=== PATIENT | male | born 1940 | race Caucasian/White ===

== ENCOUNTER → 2017-04-28 08:22 | Outpatient (CLI) | payer MEDICARE, OTHER ==
[2016-08-29 15:11] VITALS: BMI 27.6
[~2017-04-28 08:22] MED LIST: ACCUPRIL20 MG PO; ASPIRIN325 MG PO; DOXYCYCLINE HY100 M2 PO; HCTZ25 MG PO; HYDROCODON-ACE1 EAC7 PO; LANTUS SOL100 UNIT/1 SC; NEURONTIN 300300 MG PO; TESTOSTERON200 MG/ML IM; TOPROL XL50 MG PO; ZETIA10 MG PO; ZOCOR40 MG PO
== END | disposition home or self-care (01) ==
LOC: D.RT 08:22
DX: R06.00 Dyspnea, unspecified (principal)

== ENCOUNTER 2017-06-01 10:44 | Outpatient (CLI) | payer MEDICARE, OTHER ==
[~2017-06-01] VITALS: Ht 175.3 cm; Wt 86.4 kg
--- NOTE | ~2017-06-01 | HEMODYNAMI ---
PATIENT:CHELY BRADLEY JR MEDICAL RECORD: [id number] : 42 LOCATION:[facility] ADMISSION DATE: 06/01/17 Generatedon:06/01/201714:18 Patient name: CHELY BRADLEY Patient #: [id number] SSN: : 1940 Date of study: 06/01/2017 Page: Of Hemodynamic Procedure Report Patient Data Patient Demographics Procedure consent was obtained First Name: CHELY Gender: Male Last Name: KIRK Suffix: [facility] Initial: Lashawn : 1940 Patient #: [id number] Age: 76 year(s) Race: Unknown Additional ID: [id number] Contact details [address]: [address] [place] [address] State: [place] City: [place] Zip code: [address] Past Medical History Allergies: No known allergies Admission Admission Data Admission Date: 06/01/2017 Admission Time: 10:44 Admit Source: Other Lab Results Lab Result Date: 06/01/2017 Lab Result Time: 11:33 Biochemistry Name Units Result Min Max BUN mg/dl 31 --(----)-* 7 18 Creatinine mg/dl 1.9 --(----)-* 0.6 1.3 CBC Name Units Result Min Max Hematocrit % 50.7 --(--*-)-- 42 54 Hemoglobin g/dl 15.6 --(--*-)-- 13.5 17.5 Procedure Procedure Types Cath Procedure Diagnostic Procedure LHC LHC w/Coronaries w/Grafts PCI Procedure SVG-BMS/MAYITO Initial Miscellaneous Procedures Moderate Sedation up to 30 minutes Procedure Description Procedure Date Procedure Date: 06/01/2017 Procedure Start Time: 13:49 Procedure End Time: 14:15 Procedure Staff Name Function Gustavo Verduzco MD Performing Physician Devyn Plata RN Nurse Phillip Casillas RN Nurse Wilner Santana RT Monitor Karthik Church RT Scrub Procedure Data Cath Procedure Fluoroscopy Diagnostic fluoroscopy Total fluoroscopy Time: 4.1 time: 4.1 min min Diagnostic fluoroscopy Total fluoroscopy dose: 656 dose: 656 mGy mGy Contrast Material Contrast Material Type Amount (ml) Isovue 300 114 Entry Location Entry Primary Successful Side Size Upsize 1 Upsize Entry Closure Collins ccessful Closure Location (Fr) (Fr) 2 (Fr) Remarks Device Remarks Femoral Right 5 Fr 6 Fr 6 Fr Exoseal artery Mid-Length Short Estimated blood loss: 10 ml Diagnostic catheters Device Type Used For End Catheter Placement Cordis 5Fr JL 4.0 Procedure Catheter (MP) Cordis 5Fr 3DRC Catheter Procedure (MP) Diagnostic Infinity 5Fr Procedure AR 2 MOD catheter Cordis 5Fr Pigtail Procedure Catheter (MP) Procedure Complications No complications Procedure Medications Medication Administration Route Dosage Oxygen NC 2 l/min 0.9% NaCl I.V. 100 ml/hr Heparin Flush Bag added to field 2 bags (1000units/500ml NS) Versed I.V. 1 mg Fentanyl I.V. 25 mcg Heparin Bolus I.V. 5000 units Integrilin (Bolus I.V. 7.9 ml 2mg/ml) Integrilin (Bolus wasted 2.1 ml 2mg/ml) Cardene I.C. 300 mcg Plavix P.O. 600 mg Hemodynamics Rest HGB: 15.6 (g/dl) Heart Rate: 85 (bpm) Pressure Samples Time Site Value (mmHg) Purpose Heart Use Rate(bpm) 13:59 LV 146/24,29 Snapshot 87 13:59 AO 159/72(108) Pullback 87 Gradients Valve Time Site Site 2 Mean SEP/DFP Peak To Heart Use 1 (mmHg) (sec/min) Peak Rate (mmHg) (bpm) Aortic 13:59 LV AO 11 22 87 159/72(108) Calculations Valve P-P Mean Valve Index Valve Source Name Gradient Area Flow (cm2) Aortic 11 11 Snapshots Pre Cath Intra NCS Post Cath Vital Signs Time Heart Resp SPO2 etCO2 [id number] NIBP (mmHg) Rhythm Pain Sedatio n Rate (ipm) (%) (mmHg) (mmHg) Status Level (bpm) 13:34:53 84 23 98 0 0 113/86(103) NSR 8 (11) , 10(A) Utterly horrible 13:40:11 83 26 99 0 0 127/98(113) NSR 8 (11) , 10(A) Utterly horrible 13:44:14 76 32 95 0 0 119/90(107) NSR 0 (11) , 10(A) No pain 13:48:14 89 22 91 0 0 132/97(114) NSR 0 (11) , 10(A) No pain 13:53:13 81 23 98 0 0 121/75(112) NSR 0 (11) , 10(A) No pain 13:57:15 84 24 96 0 0 111/91(101) NSR 0 (11) , 10(A) No pain 14:01:14 85 24 93 0 0 120/87(100) NSR 0 (11) , 10(A) No pain 14:05:20 84 17 94 0 0 117/74(98) NSR 0 (11) , 10(A) No pain 14:09:24 70 25 97 0 0 109/78(93) NSR 0 (11) , 10(A) No pain 14:13:24 80 25 95 0 0 103/81(95) NSR 0 (11) , 10(A) No pain 14:15:18 73 23 97 0 0 107/67(93) NSR 0 (11) , 10(A) No pain Medications Time Medication Route Dose Verified Delivered Reason Notes Effectiveness by by 13:35:04 Oxygen NC 2 Phillip Phillip Per physician l/min Sonja Casillas RN RN 13:36:44 0.9% NaCl I.V. 100 Phillip Phillip ml/hr Sonja Casillas RN RN 13:37:19 Heparin Flush added 2 Phillip Phillip used for Bag to bags Sonja Casillas procedure (1000units/500ml field RN RN NS) 13:41:57 Versed I.V. 1 mg Phillip Phillip for sedation Sonja Casillas RN RN 13:42:14 Fentanyl I.V. 25 Phillip Phillip for sedation mcg Sonja Casillas RN RN 14:05:47 Heparin Bolus I.V. 5000 Phillip Phillip for units Lorigan Sonja anticoagulation RN RN 14:06:08 Integrilin I.V. 7.9 Phillip Phillip for (Bolus 2mg/ml) ml Lorigan Sonja anticoagulation RN RN 14:06:29 Integrilin wasted 2.1 Phillip Phillip for (Bolus 2mg/ml) ml Lorigan Sonja anticoagulation RN RN 14:06:53 Cardene I.C. 300 Phillip Chen for mcg Sonja LubaShai mccain RN 14:14:58 Plavix P.O. 600 Phillip Fisher for mg Sonja Casillas antiplatelet RN RN therapy Procedure Log Time Note 12:53:09 Devyn Plata RN sent for patient. Start room use. 12:53:10 Time tracking: Regular hours 12:53:16 Plan of Care:Hemodynamics will remain stable., Cardiac rhythm will remain stable., Comfort level will be maintained., Respiratory function will remain adequate., Patient/ family verbilizes understanding of procedure., Procedure tolerated without complication., Recovers from procedure without complications.. 13:09:19 Admit Source: Other 13:12:14 Lab Result : BUN 31 mg/dl 13:12:14 Lab Result : Hematocrit 50.7 % 13:12:14 Lab Result : Hemoglobin 15.6 g/dl 13:12:14 Lab Result : Creatinine 1.9 mg/dl 13:12:46 H&P Date Dictated: 05/31/2017 Within 30 days and on chart., H&P Addendum completed by physician on day of procedure. (MUST COMPLETE FOR ALL OUTPATIENTS). 13:26:00 Patient received from Pre/Post Procedure Room to CCL 1 Alert and oriented. Tansferred to table in Supine position. 13:26:01 Warm blankets applied, and marshall hugger turned on for patient comfort. 13:26:02 Correct patient and procedure confirmed by team. 13:26:05 Signed procedure consent form obtained from patient. 13:26:06 ECG and BP/O2 sat monitors applied to patient. 13:26:08 Pre-procedure instructions explained to patient. 13:26:09 Pre-op teaching completed and patient verbalized understanding. 13:26:13 Family in patients room. 13:26:15 Patient NPO since Midnight. 13:26:28 Patient allergic to No known allergies 13:26:30 Is the patient allergic to Iodine/contrast media? No. 13:26:31 Is patient on blood thinner?No 13:26:34 Patient diabetic? Yes. 13:26:36 If diabetic: On Metformin? Yes 13:26:40 If on Metformin: Last Dose? 05/31/2017 13:26:44 Previous problem with sedation/anesthesia? No ? 13:26:46 Snore? Yes 13:26:47 Sleep apnea? No 13:26:48 Deviated septum? No 13:26:49 Opens mouth fully? Yes 13:26:50 Sticks out tongue? Yes 13:26:51 Airway obstruction? No ? 13:26:54 Dentures? No ? 13:33:53 Vital chart was started 13:35:04 Oxygen 2 l/min NC was administered by Phillip Casillas RN; Per physician; 13:36:44 0.9% NaCl 100 ml/hr I.V. was administered by Phillip Casillas RN; ; 13:37:19 Heparin Flush Bag (1000units/500ml NS) 2 bags added to field was administered by Phillip Casillas RN; used for procedure; 13:40:24 Patient pain scale 8/10 ?. 13:40:37 IV patent on arrival in left forearm with 0.9% NaCl at [facility]. 13:40:39 Lab results completed and on chart. 13:40:43 Right groin area was prepped with chlora-prep and draped in sterile fashion 13:40:44 Alarms reviewed by R. N. 13:40:44 Sharps counted by scrub and verified by R.N. 13:40:50 Use device set Femoral Dx 13:40:51 Tegaderm 4 x 4 opened to sterile field. 13:40:52 Acist Manifold opened to sterile field. 13:40:53 Acist Hand Control opened to sterile field. 13:40:54 Acist Syringe opened to sterile field. 13:40:54 Bag Decanter opened to sterile field. 13:40:55 Medline Cath Pack opened to sterile field. 13:40:55 Terumo 5Fr [place] Sheath opened to sterile field. 13:40:55 St Adalberto 260cm J .035 wire opened to sterile field. 13:40:57 Diagnostic Infinity 5Fr Multipack catheter opened to sterile field. 13:41:03 Baseline sample Acquired. 13:41:12 Rhythm: sinus rhythm 13:41:15 Physician arrived 13:41:15 --------ALL STOP TIME OUT------ 13:41:16 Final Timeout: patient, procedure, and site verified with staff and physician. All members of the team are in agreement. 13:41:18 Right groin site verified by team. 13:41:21 Physical assessment completed. ASA score P 2 - A patient with mild systemic disease as per Gustavo Verduzco MD. 13:41:24 Sedation plan: IV Moderate Sedation Versed, Fentanyl 13:41:57 Versed 1 mg I.V. was administered by Phillip Casillas RN; for sedation; 13:42:14 Fentanyl 25 mcg I.V. was administered by Phillip Casillas RN; for sedation; 13:46:18 Zero performed for pressure channel P1 13:46:22 Zero performed for pressure channel P1 13:46:25 Zero performed for pressure channel P1 13:49:08 Procedure started. 13:49:08 Full Disclosure recording started 13:49:11 Local anesthetic to right femoral artery with Lidocaine 2% by Gustavo Verduzco MD.INITIAL ACCESS ONLY 13:49:48 A 5 Fr sheath was inserted into the Right Femoral artery 13:51:12 Cordis 6Fr Brite Tip 35cm Sheath opened to sterile field. 13:51:19 Sheath upsized to a 6 Fr Mid-Length. 13:51:42 A Cordis 5Fr JL 4.0 Catheter (MP) was advanced over the wire and used for Procedure. 13:52:55 LCA angiography performed. 13:53:38 Catheter exchanged over wire. 13:53:44 A Cordis 5Fr 3DRC Catheter (MP) was advanced over the wire and used for Procedure. 13:54:23 RCA angiography performed. 13:54:59 SVG to Circ angiography performed. 13:55:52 GAMBOA to LAD angiography performed. 13:56:32 Catheter exchanged over wire. 13:56:48 A Diagnostic Infinity 5Fr AR 2 MOD catheter was advanced over the wire and used for Procedure. 13:57:36 SVG to RCA angiography performed. 13:59:31 Catheter removed. 13:59:35 A Cordis 5Fr Pigtail Catheter (MP) was advanced over the wire and used for Procedure. 13:59:41 LV hemodynamics recorded. 13:59:43 LV gram done using PRITCHETT 13:59:57 EF : 20 % 14:00:07 Catheter removed. 14:00:17 Degania Medicaltronic Launcher 6Fr MB 1 guide catheter opened to sterile field. 14:00:21 Xingshuai Teach BasixCompak Inflation Kit opened to sterile field. 14:00:28 Martinez Bassett 300cm 0.014 guide wire opened to sterile field. 14:00:40 Terumo 6Fr [place] Sheath opened to sterile field. 14:01:10 6 Fr MB1 guide catheter was inserted over the wire 14:04:12 cougar wire advanced. 14:04:25 Wire advanced across lesion. 14:05:47 Heparin Bolus 5000 units I.V. was administered by Phillip Casillas RN; for anticoagulation; 14:06:08 Integrilin (Bolus 2mg/ml) 7.9 ml I.V. was administered by Phillip Casillas RN; for anticoagulation; 14:06:19 Inflation Number: 1 A Degania Medicaltronic Integrity 4.0 X 12 stent was prepped and advanced across the Aorta Right -> Dist RCA. The stent was deployed at 14 CHARLES for 0:28 (min:sec). 14:06:29 Integrilin (Bolus 2mg/ml) 2.1 ml wasted was administered by Phillip Casillas RN; for anticoagulation; 14:06:41 Stent catheter was removed intact over wire. 14:06:42 Wire removed. 14:06:43 Guide catheter removed. 14:06:47 Cordis 6Fr Exoseal opened to sterile field. 14:06:53 Cardene 300 mcg I.C. was administered by Gustavo Verduzco MD; for vasodilation; 14:07:15 Sheath upsized to a 6 Fr Short. 14:07:15 Sheath removed intact; hemostasis achieved with Exoseal to the Right Femoral artery. 14:09:28 Procedure ended.(Physican Out) 14:12:28 Fluoroscopy time 04.10 minutes. 14:12:33 Flurop Dose total: 656 14:12:33 Fluoroscopy dose: 656 mGy 14:12:37 Contrast amount:Isovue 300 114ml. 14:12:41 Sharps counted by scrub and verified by R.N. 14:12:42 Insertion/operative site no bleeding no hematoma. 14:12:44 Post-op/insertion site Right Femoral artery dressed using a 4 x 4 and Tegaderm. 14:12:47 Post right femoral artery:stable, soft, clean and dry 14:12:50 Post Procedure Pulses reassessed and unchanged 14:12:52 Post-procedure physical assessment completed. ASA score P 2 - A patient with mild systemic disease as per Gustavo Verduzco MD. 14:12:55 Post procedure rhythm: unchanged. 14:12:57 Estimated blood loss: 10 ml 14:12:58 Post procedure instruction explained to patient.Patient verbalizes understanding. 14:12:59 Patient needs reinforcement of post procedure teaching. 14:13:38 Procedure type changed to Cath procedure, Diagnostic procedure, LHC, LHC w/Coronaries w/Grafts, PCI procedure, SVG-BMS/MAYITO Initial, Miscellaneous Procedures, Moderate Sedation up to 30 minutes 14:14:58 Plavix 600 mg P.O. was administered by Phillip Casillas RN; for antiplatelet therapy; 14:15:13 Procedure and supply charges have been captured, reviewed, submitted and are correct. 14:15:13 Vital chart was stopped 14:15:16 Procedure Complication : No complications 14:15:18 See physician's report for complete and final results. 14:15:20 Report given to Pre/Post Procedure Room. 14:15:23 Patient transfered to Pre/Post Procedure Room with Stretcher. 14:15:24 Procedure ended. 14:15:24 Full Disclosure recording stopped 14:16:36 End room use (Document Last) Intervention Summary Intervention Notes Time ActionType Lesion and Equipment Action# Pressure Duration Attributes Used 14:06:19 Place stent Aorta Right Medtronic 1 14 00:28 -> Dist RCA Integrity 4.0 X 12 stent Device Usage Item Name Manufacture Quantity Catalog Hospital Part Current Minimal Lot# / Number Charge Number Stock Stock Serial# Code Tegaderm 4 1 [id number] [id number] [id number] 5 x 4 Acist Acist 1 00786 338006 886699 602423 5 Manifold Medical Systems Inc Acist Hand Acist 1 40142 356613 895321 165503 5 Control Medical Systems Inc Acist Acist 1 95445 275982 722471 560520 20 Syringe Medical Systems Inc Bag Microtek 1 2002S 987109 77248 956031 5 DecGravity Powerplants Inc. Medline Cardinal 1 [id number] 825976 46874 416483 5 Cath Pack Health Terumo 5Fr Terumo 1 [id number] 607819 024296 279584 [address] [place] [address] Adal[address]to St Adalberto 1 [id number] 272430 566096 528123 30 260cm J .035 wire Diagnostic Cardinal 1 [id number] 080942 30677 119837 30 Happy Hour Pal 5Fr Multipack catheter Cordis 6Fr Cardinal 1 [id number] 893226 608272 315699 1 Brite Tip Health 35cm Sheath Cordis 5Fr Cardinal 1 893940 5 JL 4.0 Health Catheter (MP) Cordis 5Fr Cardinal 1 215894 5 3DRC Health Catheter (MP) Diagnostic Cardinal 1 [id number] 697508 949042 317026 20 Infinity Health 5Fr AR 2 MOD catheter Cordis 5Fr Cardinal 1 671068 5 Pigtail Health Catheter (MP) Medtronic Medtronic 1 [id number] 796161 04032 432722 1 Launcher 6Fr MB 1 guide catheter Merit Merit 1 [id number] 771749 016929 537367 15 Agrivi Medical Inflation Kit Martinez Martinez 1 [id number] 349967 624394 768413 1 Bassett Vascular 300cm 0.014 guide wire Medtronic Medtronic 1 [id number] 570531 378031 1 [id number] Integrity 4.0 X 12 stent Cordis 6Fr Cardinal 1 [id number] 593375 145009 771648 10 Slyce Terumo 6Fr Terumo 1 [id number] 079852 721065 753545 40 [place] Sheath Signature Audit Stella Stage Time Signature Unsigned Intra-Procedure 06/01/2017 Karthik Church 2:18:50 PM RT(R) Signatures Monitor : Wilner Santana RT Signature : Date : Time : [facility] [address] [place] [address]
[2017-06-01] MEDS ORDERED: GLUCOPHAGE1000 MG PO (11:17)
[2017-06-01] MEDS ORDERED: LEVOTHYROXINE50 MCG PO (11:18)
[2017-06-01] MEDS ORDERED: PRAVASTATIN SOD10 MG PO (11:18)
[2017-06-01] MEDS ORDERED: ACCUPRIL20 MG PO (11:19)
[2017-06-01] MEDS ORDERED: FUROSEMIDE20 MG PO (11:19)
[2017-06-01] MEDS ORDERED: LANTUS INSULIN10 ML SC (11:20)
[2017-06-01] MEDS ORDERED: KLOR-CON M1515 MEQ PO (11:20)
[2017-06-01 11:27] VITALS: BP 147/93; Ht 175.3 cm; Wt 86.4 kg
[2017-06-01 11:45] LABS: BASOPHILS 0.7 % (0-2); EOSINOPHILS 2.1 % (0-7); HEMATOCRIT 50.7 % (42.0-54.0); HEMOGLOBIN 15.6 g/dL (13.5-17.5); IMMATURE GRANULOCYTES 0.1 % (0-5); LYMPHOCYTES 18.7 % (15-50); MCH 24.8 pg (26.0-34.0); MCHC 30.8 g/dL (31.0-37.0); MCV 80.7 fL (80.0-100.0); MEAN PLATELET VOLUME 11.5 fL (7.4-10.4); MONOCYTES 12.6 % (2-11); NEUTROPHILS 65.8 % (40-80); PLATELET COUNT 195 10x3/uL (130-400); RBC 6.28 10x6/uL (4.20-6.10); RDW 17.3 % (11.5-14.5); WBC 7.2 10x3/uL (4.8-10.8)
[2017-06-01 11:55] LABS: ANION GAP 11.8 mmol/L (8-16); CARBON DIOXIDE 28.9 mmol/L (21.0-32.0); CREATININE - SERUM 1.9 mg/dL (0.6-1.3); POTASSIUM - SERUM 3.7 mmol/L (3.5-5.1)
--- NOTE | 2017-06-01 14:45 | NUR ---
RIGHT GROIN CDI, NO HEMATOMA OR BLEEDING AT SITE, SOFT TO TOUCH. WATER GIVEN, DENIES CHEST PAIN
[2017-06-01] MEDS ORDERED: ALDACTONE25 MG PO (15:06)
[2017-06-01] MEDS ORDERED: PLAVIX75 MG PO (15:06)
--- NOTE | 2017-06-01 15:15 | NUR ---
RIGHT GROIN CDI, NO HEMATOMA OR BLEEDING AT SITE, SOFT TO TOUCH. FAMILY AT SIDE. DENIES FURTHUR NEEDS
--- NOTE | 2017-06-01 16:45 | NUR ---
NORCO 10/325 X1 GIVEN PO FOR C/O PAIN. READJUSTED HOB. RIGHT GROIN CDI, NO HEMATOMA OR BLEEDING AT SITE-SOFT TO TOUCH.
--- NOTE | 2017-06-01 17:33 | NUR ---
PAIN SOME WHAT LESS- JUST WANTS TO SIT UP. WILL CONTINUE TO MONITOR. VSS, NO DISTRESS OTHERWISE
--- NOTE | 2017-06-02 10:24 | OP ---
PATIENT NAME: CHELY BRADLEY JR MEDICAL RECORD: [id number] :42 LOCATION:D.CAT ADMISSION DATE: SURGEON: THOMAS PAREDES MD DATE OF OPERATION: 06/01/2017 PROCEDURES: Left heart catheterization, selective coronary angiography, right femoral artery approach. CATHETERS: A 5-Tristanian sheath, 5/4 left and right Trinity, 5/4 pig. The procedure was well tolerated and the patient returned to francois, sheath removed and ExoSeal device placed. FINDINGS: Left ventriculography in 30-degree PRITCHETT view: Global LV hypokinesis, reduced EF 25%. CORONARY ANATOMY: LEFT MAIN: Left main fills for a short period of time and then basically is totally occluded after it branches into the LAD and circumflex, which are both totally occluded as well. RIGHT CORONARY ARTERY: Totally occluded. BYPASS GRAFTS. 1. GAMBOA to LAD is widely patent throughout its course with small LAD distally. 2. Saphenous vein graft to the circumflex system is widely patent throughout its course, this attaches 2 OMs. A widely patent saphenous vein graft to the right has a proximal ostial stenosis of 90+ percent stenosis. PLAN: Intervention of the saphenous vein graft to right momentarily. DESCRIPTION OF PROCEDURE: A 5-Tristanian sheath was changed for a 6-Tristanian sheath. A multipurpose guiding catheter provided excellent guide catheter support followed by 300 cm Whisper wire was placed across the site occluded saphenous vein graft to the right. Stent deployed was a 4.0 x 12 mm Integrity nondrug-eluting stent up to 14 atmospheres. Predeployment, we used 300 mcg of IC Cardene. The patient was loaded with Plavix in the lab. Heparin and Integrilin were both used during the case. Sheath closed with ExoSeal device. TRANSINT:[id number] Voice Confirmation ID: [id number] DOCUMENT ID: [id number] THOMAS PAREDES MD at 1024 CC: [id number] DICTATION DATE: 06/01/17 1417 SERVICE TECHNICIAN: 06/01/17 1728 DEP CLI 06/01/17 [place] [address]
== END 2017-06-01 18:30 | disposition home or self-care (01) ==
LOC: D.CATH 10:44
PROVIDERS: Internal Medicine Interventional Cardiology
DX: I25.119 Atherosclerotic heart disease of native coronary artery with unspecified angina pectoris (principal); I25.719 Atherosclerosis of autologous vein coronary artery bypass graft(s) with unspecified angina pectoris; Z01.812 Encounter for preprocedural laboratory examination

== ENCOUNTER 2017-08-16 08:34 | Outpatient (CLI) | payer MEDICARE, OTHER ==
[~2017-08-16 08:34] MED LIST changes: +ALDACTONE25 MG PO; +FUROSEMIDE20 MG PO; +GLUCOPHAGE1000 MG PO; +KLOR-CON M1515 MEQ PO; +LANTUS INSULIN10 ML SC; +LEVOTHYROXINE50 MCG PO; +PLAVIX75 MG PO; +PRAVASTATIN SOD10 MG PO
[2017-08-16 08:53] VITALS: BP 154/94; BMI 30.9
--- NOTE | 2017-08-16 08:55 | NUR ---
0845 PATIENT TO ROOM WITH WEIGHT OF 208.8 LBS OR 94.9 KG'S ORDERS FAXED TO PHARMACY SPOKE WITH ALVARADO. ASSESSMENT COMPLETE AND IV STARTED. BLOOD DRAWN WITH SPECIMEN TO LAB
--- NOTE | 2017-08-16 09:00 | NUR ---
0900 IV STARTED WITH BLOOD DRAWN AND SPECIMEN TO LAB. DOBUTREX INFUSING AT 5 GREGORIO/KG OR 14.2 CC/HR. BUMEX INFUSING AT 10 CC./HR VSS AND PAIN DENIED FAMILY IS AT BEDSIDE
[2017-08-16 09:37] LABS: ANION GAP 16.3 mmol/L (8-16); CALCIUM 8.6 mg/dL (8.5-10.1); CARBON DIOXIDE 23.1 mmol/L (21.0-32.0); CREATININE - SERUM 1.7 mg/dL (0.6-1.3); POTASSIUM - SERUM 4.4 mmol/L (3.5-5.1)
--- NOTE | 2017-08-16 10:15 | NUR ---
PATIENT VOIDS 300 CC URINE TO COLLECTION. NEEDS ARE DENIED SITTING WITH HOB UP 45 DEGREES WATCHING TV NO DISTRESS
--- NOTE | 2017-08-16 11:43 | NUR ---
1100 IV DOBUTREX AND BUMEX DRIPS INFUSING PER PUMP PER ORDERS. PT DENIES ANY C/O AT THIS TIME. FAMILY AT BEDSIDE, CALL LIGHT IN REACH.
--- NOTE | 2017-08-16 11:47 | NUR ---
1147 DR BALES NOTIFIED OF CREATININE 1.7, NO NEW ORDERS RECEIVED.
--- NOTE | 2017-08-16 12:16 | NUR ---
1215 PT VOIDED 600 CC CLEAR YELLOW URINE TO URINAL. VSS, DENIES ANY C/O. FAMILY AT BEDSIDE. CALL LIGHT IN REACH. NSR WTIH OCCAS PVC'S
--- NOTE | 2017-08-16 12:29 | NUR ---
1225 PT DENIES ANY C/O. 2 GM SODIUM DIET TRAY SERVED. CALL LIGHT IN REACH.
--- NOTE | 2017-08-16 13:30 | NUR ---
PT VOIDED 600 CC CLEAR YELLOW URINE, DENIES ANY C/O. FAMILY AT BEDSIDE, CALL LIGHT IN REACH.
--- NOTE | 2017-08-16 14:45 | NUR ---
1445 PT VOIDED [address] CC CLE[address] YELLOW URINE. DR BALES NOTIFIED OF BP DECREASE AND NO NEW ORDER RECEIVED. WILL CONTINUE TO MONITOR.
--- NOTE | 2017-08-16 17:00 | NUR ---
INFUSION TIME IS COMPLETE, INFUSION STOPPED. PT HAS VOIDED 650 CC CLEAR YELLOW URINE TO URINAL. DENIES ANY C/O AT THIS TIME. WILL CONTINUE TO MONITOR.
--- NOTE | 2017-08-16 17:48 | NUR ---
1735 PT DENIES ANY C/O. VSS. NSR WTIH OCCAS PVC'S. PT VOIDED ADDITIONAL 300 CC CLEAR YELLOW URINE. IV DC'D WITH CATH INTACT. DC INSTRUCTIONS REVIEWED WITH PT. PT ESCORTED TO PRIVATE AUTO VIA WC BY NURSE.
== END 2017-08-16 17:35 | disposition home or self-care (01) ==
LOC: D.CATH 08:34
PROVIDERS: Internal Medicine Interventional Cardiology
DX: I50.9 Heart failure, unspecified (principal); I42.9 Cardiomyopathy, unspecified

== ENCOUNTER 2018-02-14 11:50 | Outpatient (CLI) | payer MEDICARE, OTHER ==
[~2018-02-14] VITALS: Ht 175.3 cm; Wt 77.3 kg
--- NOTE | ~2018-02-14 | HEMODYNAMI ---
PATIENT:CHELY BRADLEY JR MEDICAL RECORD: [id number] : 42 LOCATION:[facility] ADMISSION DATE: 02/14/18 Generatedon:02/14/201816:30 Patient name: CHELY BRADLEY Patient #: [id number] SSN: : 1940 Date of study: 02/14/2018 Page: Of Hemodynamic Procedure Report Patient Data Patient Demographics Procedure consent was obtained First Name: CHELY Gender: Male Last Name: KIRK Suffix: [facility] Initial: Lashawn : 1940 Patient #: [id number] Age: 77 year(s) Race: Unknown Additional ID: [id number] Contact details [address]: [address] [place] [address] State: [place] City: [place] Zip code: [address] Past Medical History Allergies: No known allergies Admission Admission Data Admission Date: 02/14/2018 Admission Time: 11:50 Lab Results Lab Result Date: 02/14/2018 Lab Result Time: 0:45 Biochemistry Name Units Result Min Max BUN mg/dl 32 --(----)-* 7 18 Creatinine mg/dl 1.7 --(----)-* 0.6 1.3 CBC Name Units Result Min Max Hematocrit % 39.3 -*(----)-- 42 54 Hemoglobin g/dl 13.4 -*(----)-- 13.5 17.5 Procedure Procedure Types Cath Procedure Diagnostic Procedure Sedation Charges Moderate Sedation up to 30 minutes Peripheral Cath Diagnostic Procedure Cath Peripheral Tuuma-Ozbgvsr-Cta-Off Procedure Description Procedure Date Procedure Date: 02/14/2018 Procedure Start Time: 15:48 Procedure End Time: 16:29 Procedure Staff Name Function Gustavo Ramirez MD Performing Physician Tonja Ivy RT Monitor Kelly Howe RN Nurse Karthik Church RT Scrub Procedure Data Cath Procedure Fluoroscopy Diagnostic fluoroscopy Total fluoroscopy Time: 13 time: 13 min min Diagnostic fluoroscopy Total fluoroscopy dose: 264 dose: 264 mGy mGy Contrast Material Contrast Material Type Amount (ml) Isovue 300 122 Entry Location Entry Primary Successful Side Size Upsize Upsize Entry Closure Succes sful Closure Location (Fr) 1 (Fr) 2 (Fr) Remarks Device Remarks Femoral Right 5 Fr 6 Fr 6 Fr Exoseal artery Long Short Estimated blood loss: 10 ml Diagnostic catheters Device Type Used For End Catheter Placement DIAGNOSTIC UF 5Fr Abdominal catheter ([id number]) aortogram with runoff DIAGNOSTIC IM 5Fr Procedure catheter ([id number]) Procedure Complications No complications Procedure Medications Medication Administration Route Dosage Oxygen NC 2 l/min Lidocaine 2% added to field 20 Heparin Flush Bag added to field 2 bags (1000units/500ml NS) 0.9% NaCl I.V. 100 ml/hr Versed I.V. 1 mg Fentanyl I.V. 50 mcg Versed I.V. 0.5 mg Fentanyl I.V. 25 mcg Versed I.V. 0.5 mg Fentanyl I.V. 25 mcg Hemodynamics Rest HGB: 13.4 (g/dl) Heart Rate: 73 (bpm) Snapshots Pre Cath Intra NCS Post Cath Vital Signs Time Heart Resp SPO2 etCO2 NIBP (mmHg) Rhythm Pain Sedation Rate (ipm) (%) (mmHg) Status Level (bpm) 15:38:53 70 17 100 13.5 176/92(143) NSR 0 (11) 10(A) , No pain 15:45:35 72 17 95 37.5 168/88(132) NSR 0 (11) 10(A) , No pain 15:50:19 71 14 98 0.7 164/80(130) NSR 0 (11) 9(A) , No pain 15:55:35 75 11 94 11.2 157/89(130) NSR 0 (11) 9(A) , No pain 16:00:18 73 13 93 0 159/80(129) NSR 0 (11) 9(A) , No pain 16:05:02 73 15 99 37.5 161/83(124) NSR 0 (11) 9(A) , No pain 16:09:47 74 13 94 42.8 155/77(127) NSR 0 (11) 9(A) , No pain 16:14:30 75 14 96 46.5 149/78(125) NSR 0 (11) 9(A) , No pain 16:19:45 73 14 100 0 168/81(133) NSR 0 (11) 9(A) , No pain 16:24:29 73 15 100 0 173/82(135) NSR 0 (11) 9(A) , No pain 16:28:41 73 16 100 0 169/88(133) NSR 0 (11) 10(A) , No pain Medications Time Medication Route Dose Verified Delivered Reason Notes Effe ctiveness by by 15:33:19 Oxygen NC 2 Gustavo Buffie Per l/min St Shai Howe RN physician 15:37:50 Lidocaine 2% added 20ml Gustavo Gustavo for local to vial [facility] anesthetic field MD DELUCA 15:37:55 Heparin Flush added 2 Gustavo Gustavo used for Bag to bags [facility] procedure (1000units/500ml field MD DELUCA NS) 15:38:04 0.9% NaCl I.V. 100 Gustavo Buffie Per ml/hr St Shai Howe RN physician 15:46:40 Versed I.V. 1 mg Gustavo Buffie for [facility] RN sedation 15:46:48 Fentanyl I.V. 50 Gustavo Buffie for mcg [facility] RN sedation 15:59:57 Versed I.V. 0.5 Gustavo Buffie for mg James Howe RN sedation 16:00:02 Fentanyl I.V. 25 Gustavo Buffie for mcg [facility] RN sedation 16:16:02 Versed I.V. 0.5 Gustavo Buffie for mg [facility] RN sedation 16:22:16 Fentanyl I.V. 25 Gustavo Buffie for [facility] RN sedation Procedure Log Time Note 15:17:38 Time tracking: Regular hours (M-F 7:00 - 5:00) 15:17:42 Plan of Care:Hemodynamics will remain stable., Cardiac rhythm will remain stable., Comfort level will be maintained., Respiratory function will remain adequate., Patient/ family verbilizes understanding of procedure., Procedure tolerated without complication., Recovers from procedure without complications.. 15:17:44 Tonja Counts RT(R) sent for patient. Start room use. 15:21:31 H&P Date Dictated: 02/13/2018 Within 30 days and on chart., H&P Addendum completed by physician on day of procedure. (MUST COMPLETE FOR ALL OUTPATIENTS). 15:22: Lab Result : BUN 32 mg/dl 15:: Lab Result : Creatinine 1.7 mg/dl 15:: Lab Result : Hemoglobin 13.4 g/dl 15:: Lab Result : Hematocrit 39.3 % 15::08 Lab results completed and on chart. 15:25:25 Patient received from Pre/Post Procedure Room to CCL 1 Alert and oriented. Tansferred to table in Supine position. 15:25:27 Warm blankets applied, and marshall hugger turned on for patient comfort. 15:25: Correct patient and procedure confirmed by team. 15::28 Signed procedure consent form obtained from patient. 15:25: ECG and BP/O2 sat monitors applied to patient. 15:: Pre-procedure instructions explained to patient. 15::32 Pre-op teaching completed and patient verbalized understanding. 15:25:33 Family in waiting room. 15:25:35 Patient NPO since Midnight. 15:33:19 Oxygen 2 l/min NC was administered by Kelly Howe RN; Per physician; 15:37:50 Lidocaine 2% 20ml vial added to field was administered by Gustavo Ramirez MD; for local anesthetic; 15:37:55 Heparin Flush Bag (1000units/500ml NS) 2 bags added to field was administered by Gustavo Ramirez MD; used for procedure; 15:38:04 0.9% NaCl 100 ml/hr I.V. was administered by Kelly Howe RN; Per physician; 15:44:40 Vital chart was started 15:44:43 Baseline sample Acquired. 15:44:46 Rhythm: sinus rhythm 15:45:01 Full Disclosure recording started 15:45:12 Patient allergic to No known allergies 15:45:14 Is the patient allergic to Iodine/contrast media? No. 15:45:16 Is patient on blood thinner?No 15:45:18 Patient diabetic? Yes. 15:45:19 If diabetic: On Metformin? No 15:45:32 PATIENT ON LANTUS 15:45:39 Previous problem with sedation/anesthesia? No ? 15:45:41 Snore? Yes 15:45:42 Sleep apnea? No 15:45:43 Deviated septum? No 15:45:44 Opens mouth fully? Yes 15:45:44 Sticks out tongue? Yes 15:45:46 Airway obstruction? No ? 15:45:48 Dentures? No ? 15:45:53 Pre procedure: right dorsailis pedis pulse Doppler 15:45:57 Pre procedure: left dorsailis pedis pulse Doppler 15:46:00 Patient pain scale 0/10 ?. 15:46:07 IV patent on arrival in left hand with 0.9% NaCl at [facility]. 15:46:16 Bilateral groins area was prepped with chlora-prep and draped in sterile fashion 15:46:17 Alarms reviewed by R. N. 15:46:17 Sharps counted by scrub and verified by R.N. 15:46:18 Final Timeout: patient, procedure, and site verified with staff and physician. All members of the team are in agreement. 15:46:21 Right groin site verified by team. 15:46:23 Physical assessment completed. ASA score P 2 - A patient with mild systemic disease as per Gustavo Ramirez MD. 15:46:26 Sedation plan: IV Moderate Sedation Medication:Versed, Fentanyl 15:46:36 Use device set CATH PACK 15:46:37 ACIST Syringe (30612) opened to sterile field. 15:46:38 ACIST Hand Control (11807) opened to sterile field. 15:46:39 ACIST Manifold (63023) opened to sterile field. 15:46:39 Medline Cath Pack ([id number]) opened to sterile field. 15:46:40 Versed 1 mg I.V. was administered by Kelly Howe RN; for sedation; 15:46:40 Bag Decanter () opened to sterile field. 15:46:40 DIAGNOSTIC WIRE .035 260cm J wire (621866) opened to sterile field. 15:46:48 Fentanyl 50 mcg I.V. was administered by Kelly Howe RN; for sedation; 15:46:54 PERCUTANEOUS ENTRY 19GA needle opened to sterile field. 15:48:31 Procedure started. 15:48:35 Local anesthetic to right femoral artery with Lidocaine 2% by Gustavo Ramirez MD.INITIAL ACCESS ONLY 15:49:27 A 5 Fr sheath was inserted into the Right Femoral artery 15:50:15 A DIAGNOSTIC UF 5Fr catheter ([id number]) was advanced over the wire and used for Abdominal aortogram with runoff. 15:56:10 Wire advanced down LSFA 15:56:28 A DIAGNOSTIC IM 5Fr catheter ([id number]) was advanced over the wire and used for Procedure. 15:59:57 Versed 0.5 mg I.V. was administered by Kelly Howe RN; for sedation; 16:00:02 Fentanyl 25 mcg I.V. was administered by Kelly Howe RN; for sedation; 16:01:22 SHEATH 6FR Destination (RSR01) opened to sterile field. 16:02:24 Sheath upsized to a 6 Fr Long. 16:04:04 WHISPER 300cm guide wire ([id number]) opened to sterile field. 16:08:33 WHISPER wire advanced. 16:08:51 Wire removed. unable to cross lesion. 16:08:59 REGALIA wire advanced. 16:09:09 REGALIA 300cm wire ([id number]) opened to sterile field. 16:11:37 CXI SUPPORT catheter advanced. 16:15:16 CXI SUPPORT .018 150CM STR catheter ([id number]) opened to sterile field. 16:16:02 Versed 0.5 mg I.V. was administered by Kelly Howe RN; for sedation; 16:22:16 Fentanyl 25 mcg I.V. was administered by Kelly Howe RN; for sedation; 16:22:41 Wire removed. 16:22:47 Catheter removed. 16:22:57 Sheath upsized to a 6 Fr Short. 16:23:53 Sheath removed intact; hemostasis achieved with Exoseal to the Right Femoral artery. 16:23:55 Procedure ended.(Physican Out) 16:24:12 Fluoroscopy time 13.00 minutes. 16:24:16 Flurop Dose total: 264 16:24:16 Fluoroscopy dose: 264 mGy 16:25:18 SHEATH Prelude 6Fr 0.035 (MDM-1O-66-035) opened to sterile field. 16:26:44 Contrast amount:Isovue 300 122ml. 16:26:46 Sharps counted by scrub and verified by R.N. 16:26:51 Insertion/operative site no bleeding no hematoma. 16:26:54 Post-op/insertion site Right Femoral artery dressed using a 4 x 4 and Tegaderm. 16:26:57 Post right femoral artery:stable, clean and dry 16:27:00 Post Procedure Pulses reassessed and unchanged 16:27:03 Post-procedure physical assessment completed. ASA score P 2 - A patient with mild systemic disease as per Gustavo Ramirez MD. 16:27:08 Post procedure rhythm: unchanged. 16:27:13 Estimated blood loss: 10 ml 16:27:15 Post procedure instruction explained to patient.Patient verbalizes understanding. 16:27:15 Patient needs reinforcement of post procedure teaching. 16:27:30 Procedure Complication : No complications 16:27:33 See physician's report for complete and final results. 16:28:09 Procedure type changed to Cath procedure, Diagnostic procedure, Sedation Charges, Moderate Sedation up to 30 minutes, Peripheral Cath Diagnostic Procedure, Cath Peripheral, Kcgbv-Yihfgor-Lhh-Off 16:28:26 Tegaderm 4 x 4 (1626W) opened to sterile field. 16:28:27 EXOSEAL 6Fr (EX600) opened to sterile field. 16:29:16 SHEATH Prelude 5Fr 0.035 (VXZ-4X-08-035) opened to sterile field. 16:29:39 Procedure and supply charges have been captured, reviewed, submitted and are correct. 16:29:40 Vital chart was stopped 16:29:42 Report given to Pre/Post Procedure Room. 16:29:45 Patient transfered to Pre/Post Procedure Room with Stretcher. 16:29:59 Procedure ended. 16:29:59 Full Disclosure recording stopped 16:30:02 End room use (Document Last) Device Usage Item Name Manufacture Quantity Catalog Number [facility] Minimal Lot# / Charge Number Stock Stock Serial# Code ACIST Syringe Acist Medical 1 10657 793066 403711 854285 20 (86279) Systems Inc ACIST Hand [employer]ist Medical 1 61851 290481 952025 191412 5 Control (75617) Systems Inc ACIST Manifold [employer] 1 89776 242558 076074 089904 5 (97598) Systems Inc Medline Cath Cardinal 1 [id number] 864925 30379 908221 5 Pack Health ([id number]) Bag Decanter Microtek 1 085988 34290 171352 5 () Medical Inc. DIAGNOSTIC WIRE St Adalberto 1 999689 489088 769716 693535 30 .035 260cm J wire (909629) PERCUTANEOUS [employer] 1 J99402 594695 301122 5 ENTRY 19GA needle DIAGNOSTIC UF Cardinal 1 [id number] 715385 037702 537955 10 5Fr catheter Health (674350R2) DIAGNOSTIC IM Cardinal 1 [id number] 343148 761812 599764 5 5Fr catheter Health (345002R) SHEATH 6FR Terumo 1 RSR01 916802 10448 617002 5 Destination (RSR01) WHISPER 300cm Martinez 1 [id number] 044941 733367 726762 5 guide wire Vascular ([id number]) REGALIA 300cm Cardiovascular 1 [id number] 585814 698418 136890 1 wire systems ([id number]) CXI SUPPORT [employer] 1 Y80573 821839 183201 568261 5 .018 150CM STR catheter (Z68212) SHEATH Prelude [facility] 1 SDM-2O-50-35 250597 9468356 962179 5 6Fr 0.035 (PQV-1Y-06-035) Tegaderm 4 x 4 3M 1 1626W 424685 564846 778811 5 (1626W) EXOSEAL 6Fr Cardinal 1 EX600 600943 492062 516051 10 (EX600) Health SHEATH Prelude [facility] 1 JKV-1J-90-035 451570 571041 742846 5 5Fr 0.035 (CBM-7L-88-035) Signature Audit [place] Stage Time Signature Unsigned Intra-Procedure 02/14/2018 Tonja 4:30:22 PM Counts RT(R) Signatures Monitor : Tonja Signature : Counts RT Date : Time : [place] [id number] [place] [address]
--- NOTE | ~2018-02-14 | OP ---
PATIENT NAME: CHELY BRADLEY JR MEDICAL RECORD: [id number] :42 LOCATION:[facility] ADMISSION DATE: SURGEON: THOMAS PAREDES MD DATE OF OPERATION: 02/14/2018 PROCEDURE: AFRO. DESCRIPTION OF PROCEDURE: After using the right femoral artery approach, the catheter was placed to the level of the renal arteries. Abdominal aortogram was performed. Nonselective view of both renal arteries showed no significant stenosis. Abdominal aorta shows some dilatation, but no true aneurysm, no significant atheroma or debris. The catheter was then pulled to the level of the right and left iliacs, both subselected. Right iliac, right internal and external iliacs showed no significant disease. Right femoral, right common femoral no significant disease. Right superficial femoral shows multiple areas of 80% stenosis with some involvement of the posterior tibial, typical diabetic disease. The left iliac was then cannulated. No significant disease of the left internal or external iliac. Left common and deep femoral showed no significant disease. The left common femoral shows severe diffuse disease with an area of subtotal stenosis versus 100% occlusion with collaterals feeding the distal vasculature proximal to the occlusion. The diagnostic sheath was exchanged for a long sheath that was placed around the horn. We attempted multiple wires to be placed through the distal occlusion including Whisper, BMW. We then used a glide catheter for backup. We were unable to cross this. Repeat angiography showed no loss of any collaterals. IMPRESSION: Unsuccessful DIGITAL ARCHIVIST of the left superficial femoral. We will plan Diamonback of the right. Further recommendations based on the above. TRANSINT:[id number] Voice Confirmation ID: [id number] DOCUMENT ID: [id number] THOMAS PAREDES MD at 0804 CC: [id number] DICTATION DATE: 02/15/18 0953 MAGNETOMETER OPERATOR: 02/15/18 1105 DEP CLI 02/14/18 [place] [id number] [place] [id number]
[2018-02-14] MEDS ORDERED: BAYER ASPIRIN325 MG PO (12:38)
[2018-02-14] MEDS ORDERED: LANOXIN125 MCG PO (12:39)
[2018-02-14] MEDS ORDERED: ALDACTONE50 MG PO (12:39)
[2018-02-14] MEDS ORDERED: COZAAR100 MG PO (12:40)
[2018-02-14] MEDS ORDERED: PRAVASTATIN SOD10 MG PO (12:41)
[2018-02-14] MEDS ORDERED: NEURONTIN 300300 MG PO (12:41)
[2018-02-14 12:49] VITALS: BP 163/75; Ht 175.3 cm; Wt 77.3 kg
[2018-02-14 12:55] LABS: BASOPHILS 0.3 % (0-2); EOSINOPHILS 4.1 % (0-7); HEMATOCRIT 39.3 % (42.0-54.0); HEMOGLOBIN 13.4 g/dL (13.5-17.5); IMMATURE GRANULOCYTES 0.2 % (0-5); LYMPHOCYTES 22.7 % (15-50); MCH 32.1 pg (26.0-34.0); MCHC 34.1 g/dL (31.0-37.0); MCV 94.2 fL (80.0-100.0); MEAN PLATELET VOLUME 10.2 fL (7.4-10.4); MONOCYTES 14.3 % (2-11); NEUTROPHILS 58.4 % (40-80); PLATELET COUNT 213 10x3/uL (130-400); RBC 4.17 10x6/uL (4.20-6.10); RDW 13.8 % (11.5-14.5); WBC 8.8 10x3/uL (4.8-10.8)
[2018-02-14 13:14] LABS: CALCIUM 9.6 mg/dL (8.5-10.1); CARBON DIOXIDE 20.9 mmol/L (21.0-32.0); CREATININE - SERUM 1.7 mg/dL (0.6-1.3); POTASSIUM - SERUM 4.9 mmol/L (3.5-5.1)
[2018-02-14] MEDS ORDERED: PLAVIX75 MG PO (16:55)
== END 2018-02-14 18:36 | disposition home or self-care (01) ==
LOC: D.CATH 11:50
PROVIDERS: Internal Medicine Interventional Cardiology
DX: I70.213 Atherosclerosis of native arteries of extremities with intermittent claudication, bilateral legs (principal); Z01.812 Encounter for preprocedural laboratory examination

== ENCOUNTER 2018-02-21 11:08 | Outpatient (CLI) | payer MEDICARE, OTHER ==
[~2018-02-21] VITALS: Ht 175.3 cm; Wt 77.3 kg
--- NOTE | ~2018-02-21 | HEMODYNAMI ---
PATIENT:CHELY BRADLEY JR MEDICAL RECORD: [id number] : 42 LOCATION:[facility] ADMISSION DATE: 02/21/18 Generatedon:02/21/201816:08 Patient name: CHELY BRADLEY Patient #: [id number] SSN: : 1940 Date of study: 02/21/2018 Page: Of Hemodynamic Procedure Report Patient Data Patient Demographics Procedure consent was obtained First Name: CHELY Gender: Male Last Name: KIRK Suffix: [facility] Initial: Lashawn : 1940 Patient #: [id number] Age: 77 year(s) Race: Unknown Additional ID: [id number] Contact details [address]: [address] [place] [address] State: [place] City: [place] Zip code: [address] Past Medical History Allergies: No known allergies Admission Admission Data Admission Date: 02/21/2018 Admission Time: 11:08 Procedure Procedure Types Cath Procedure Diagnostic Procedure Sedation Charges Moderate Sedation up to 45 minutes Peripheral vascular Intervention Atherectomy Atherectomy Fem/Pop w/Plasty Procedure Description Procedure Date Procedure Date: 02/21/2018 Procedure Start Time: 15:05 Procedure End Time: 16:05 Procedure Staff Name Function Gustavo Ramirez MD Performing Physician Shaye Espinal RT Monitor Leydi Cevallos RT Scrub Kelly Howe RN Nurse Procedure Data Cath Procedure Fluoroscopy Diagnostic fluoroscopy Total fluoroscopy Time: time: 18.9 min 18.9 min Diagnostic fluoroscopy Total fluoroscopy dose: 529 dose: 529 mGy mGy Contrast Material Contrast Material Type Amount (ml) Isovue 300 71 Entry Location Entry Primary Successful Side Size Upsize Upsize Entry Closure Succes sful Closure Location (Fr) 1 (Fr) 2 (Fr) Remarks Device Remarks Femoral Left 5 Fr 7 Fr 7 Fr Exoseal artery Long Short Estimated blood loss: 10 ml Diagnostic catheters Device Type Used For End Catheter Placement DIAGNOSTIC IMT 5Fr Procedure Catheter ([id number]) Procedure Complications No complications Procedure Medications Medication Administration Route Dosage Oxygen NC 2 l/min Lidocaine 2% added to field 20 Heparin Flush Bag added to field 2 bags (1000units/500ml NS) 0.9% NaCl I.V. 100 ml/hr Versed I.V. 1 mg Fentanyl I.V. 50 mcg Versed I.V. 1 mg Fentanyl I.V. 50 mcg Versed I.V. 1 mg Heparin Bolus I.V. 5000 units Versed I.V. 1 mg Fentanyl I.V. 50 mcg Fentanyl I.V. 50 mcg Viperslide Mix(5mg added to field 1 bags Verapamil/5mg Nitro/20cc Viperslide/100cc Bag NS) Hemodynamics Rest HGB: 13.4 (g/dl) Heart Rate: 47 (bpm) Snapshots Pre Cath Intra NCS Post Cath Vital Signs Time Heart Resp SPO2 etCO2 NIBP Rhythm Pain Sedation Rate (ipm) (%) (mmHg) (mmHg) Status Level (bpm) 14:49:07 56 16 99 0 116/62(93) NSR 0 (11) 10(A) , No pain 14:53:13 62 19 99 0 107/75(89) NSR 0 (11) 10(A) , No pain 14:57:19 73 16 99 0 90/68(76) NSR 0 (11) 10(A) , No pain 15:01:14 71 15 100 26.1 104/74(89) NSR 0 (11) 10(A) , No pain 15:05:22 70 12 100 16.4 102/61(86) NSR 0 (11) 10(A) , No pain 15:10:36 81 17 99 22.4 93/64(70) NSR 0 (11) 9(A) , No pain 15:15:22 75 14 99 38.1 96/71(82) NSR 0 (11) 9(A) , No pain 15:19:26 75 15 99 0.7 86/60(72) NSR 0 (11) 9(A) , No pain 15:23:26 83 13 97 35.9 79/63(75) NSR 0 (11) 9(A) , No pain 15:27:21 78 14 98 0 90/65(79) NSR 0 (11) 9(A) , No pain 15:31:23 81 15 98 22.4 85/60(76) NSR 0 (11) 9(A) , No pain 15:35:25 75 14 99 0 81/55(67) NSR 0 (11) 9(A) , No pain 15:39:20 82 15 99 46.3 93/64(79) NSR 0 (11) 9(A) , No pain 15:43:22 80 14 98 39.6 87/61(75) NSR 0 (11) 9(A) , No pain 15:48:23 86 16 98 21.6 98/75(91) NSR 0 (11) 9(A) , No pain 15:52:23 82 16 98 44.1 102/71(92) NSR 0 (11) 10(A) , No pain 15:56:26 81 11 99 46.3 100/65(90) NSR 0 (11) 10(A) , No pain 16:04:28 76 13 98 91/66(76) NSR 0 (11) 9(A) , No pain Medications Time Medication Route Dose Verified Delivered Reason Notes Effectiveness by by 14:54:56 Oxygen NC 2 Gustavo Buffie used for l/min St Shai Howe RN procedure 14:55:03 Lidocaine 2% added 20ml Gustavo Gustavo for local to vial [facility] anesthetic field MD DELUCA 14:55:09 Heparin Flush added 2 Gustavo Gustavo used for Bag to bags [facility] procedure (1000units/500ml field MD DELUCA NS) 14:55:18 0.9% NaCl I.V. 100 Gustavo Mendoza Per physician ml/hr St Shai Howe RN, MD 15:04:44 Versed I.V. 1 mg Gustavo Buffie for sedation St Shai Howe RN, MD 15:04:50 Fentanyl I.V. 50 Gustavo Buffie for sedation mcg St Shai Howe RN, MD 15:10:20 Versed I.V. 1 mg Gustavo Buffie for sedation St Shai Howe RN, MD 15:10:24 Fentanyl I.V. 50 Gustavo Buffie for sedation mcg St Shai Howe RN, MD 15:16:42 Versed I.V. 1 mg Gustavo Buffie for sedation St Shai Howe RN, MD 15:16:43 Fentanyl I.V. 50 Gustavo Buffie for sedation mcg St Shai Howe RN, MD 15:18:40 Heparin Bolus I.V. 5000 Gustavo Buffie for verifi ed units St Shai Howe RN anticoagulation with dr MD garcia 15:20:14 Viperslide added 1 Gustavo Gustavo used for Mix(5mg to bags [facility] procedure Verapamil/5mg field MD DELUCA Nitro/20cc Viperslide/100cc Bag NS) 15:43:07 Versed I.V. 1 mg Gustavo Mendoza for sedation St Shai Howe RN, MD 15:43:10 Fentanyl I.V. 50 Gustavo Mendoza for sedation mcg St Shai Howe RN, MD Procedure Log Time Note 14:35:38 Diagnostic Cath Status : Elective 14:35:54 Shaye Espinal RT(R) sent for patient. Start room use. 14:35:55 Time tracking: Regular hours (M-F 7:00 - 5:00) 14:35:59 Plan of Care:Hemodynamics will remain stable., Cardiac rhythm will remain stable., Comfort level will be maintained., Respiratory function will remain adequate., Patient/ family verbilizes understanding of procedure., Procedure tolerated without complication., Recovers from procedure without complications.. 14:42:40 Patient received from Pre/Post Procedure Room to CCL 2 Alert and oriented. Tansferred to table in Supine position. 14:42:41 Warm blankets applied, and marshall hugger turned on for patient comfort. 14:42:42 Correct patient and procedure confirmed by team. 14:42:44 Signed procedure consent form obtained from patient. 14:42:45 ECG and BP/O2 sat monitors applied to patient. 14:47:54 Vital chart was started 14:47:58 Baseline sample Acquired. 14:48:00 Full Disclosure recording started 14:48:04 H&P Date Dictated: 02/21/2018 Within 30 days and on chart., H&P Addendum completed by physician on day of procedure. (MUST COMPLETE FOR ALL OUTPATIENTS). 14:48:05 Pre-procedure instructions explained to patient. 14:48:05 Pre-op teaching completed and patient verbalized understanding. 14:48:06 Family in waiting room. 14:48:09 Patient NPO since Midnight. 14:48:10 Is the patient allergic to Iodine/contrast media? No. 14:48:12 Was the patient premedicated? No 14:48:14 Is patient on blood thinner?Yes 14:48:16 ACC The patient was administered the following blood thiners within the last 24 hours: ACCPlavix 14:48:19 Patient diabetic? Yes. 14:48:20 If diabetic: On Metformin? No 14:48:22 Previous problem with sedation/anesthesia? No ? 14:48:24 Snore? Yes 14:48:25 Sleep apnea? No 14:48:26 Deviated septum? No 14:48:27 Opens mouth fully? Yes 14:48:27 Sticks out tongue? Yes 14:48:30 Airway obstruction? No ? 14:48:32 Dentures? No ? 14:48:42 Pre procedure: right dorsailis pedis pulse 1+ Palpable, but thready & weak; easily obliterated 14:48:45 Pre procedure: left dorsailis pedis pulse 1+ Palpable, but thready & weak; easily obliterated 14:48:48 Patient pain scale 0/10 ?. 14:48:54 IV patent on arrival in right forearm with 0.9% NaCl at [facility]. 14:48:58 Lab results completed and on chart. 14:49:04 Left groin area was prepped with chlora-prep and draped in sterile fashion 14:49:05 Alarms reviewed by R. N. 14:49:06 Sharps counted by scrub and verified by R.N. 14:54:56 Oxygen 2 l/min NC was administered by Kelly Howe RN; used for procedure; 14:55:03 Lidocaine 2% 20ml vial added to field was administered by Gustavo Ramirez MD; for local anesthetic; 14:55:09 Heparin Flush Bag (1000units/500ml NS) 2 bags added to field was administered by Gustavo Ramirez MD; used for procedure; 14:55:18 0.9% NaCl 100 ml/hr I.V. was administered by Kelly Howe RN; Per physician; 14:55:56 Physician arrived 14:55:56 --------ALL STOP TIME OUT------ 14:55:57 Final Timeout: patient, procedure, and site verified with staff and physician. All members of the team are in agreement. 14:56:01 Left groin site verified by team. 14:56:06 Physical assessment completed. ASA score P 2 - A patient with mild systemic disease as per Gustavo Ramirez MD. 14:56:09 Sedation plan: IV Moderate Sedation Medication:Versed, Fentanyl 14:56:18 Baseline sample Acquired. 14:56:23 Rhythm: sinus rhythm 14:56:36 Use device set Femoral Dx 14:56:38 ACIST Syringe (16030) opened to sterile field. 14:56:39 Bag Decanter (2001S) opened to sterile field. 14:56:40 Medline Cath Pack ([id number]) opened to sterile field. 14:56:40 DIAGNOSTIC WIRE .035 260cm J wire (105240) opened to sterile field. 14:56:42 ACIST Hand Control (06819) opened to sterile field. 14:56:42 ACIST Manifold (75919) opened to sterile field. 14:56:48 Tegaderm 4 x 4 (1626W) opened to sterile field. 14:56:50 PERCUTANEOUS ENTRY 19GA needle opened to sterile field. 14:57:12 SHEATH 6Fr Prelude ([id number]) opened to sterile field. 15:03:37 Procedure started. 15:04:44 Versed 1 mg I.V. was administered by Kelly Howe RN; for sedation; 15:04:48 Zero performed for pressure channel P1 15:04:50 Fentanyl 50 mcg I.V. was administered by Kelly Howe RN; for sedation; 15:04:54 Zero performed for pressure channel P1 15:04:57 Zero performed for pressure channel P1 15:05:11 Local anesthetic to left femerol artery with Lidocaine 2% by Gustavo Ramirez MD.INITIAL ACCESS ONLY 15:05:18 INFLATOR Merit BasWensonianeli (PZ5942) opened to sterile field. 15:09:26 TORQUE DEVICE PLASTIC .038 ( TD01) opened to sterile field. 15:10:20 Versed 1 mg I.V. was administered by Kelly Howe RN; for sedation; 15:10:24 Fentanyl 50 mcg I.V. was administered by Kelly Howe RN; for sedation; 15:11:18 A 5 Fr sheath was inserted into the Left Femoral artery 15:11:32 A DIAGNOSTIC IMT 5Fr Catheter ([id number]) was advanced over the wire and used for Procedure. 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 Wire exchanged for Wholey wire. 15:16:42 Versed 1 mg I.V. was administered by Kelly Howe RN; for sedation; 15:16:43 Fentanyl 50 mcg I.V. was administered by Kelly oHwe RN; for sedation; 15:17:19 IMT removed over the wire. 15:17:27 SHEATH 7FR Destination (RSR04) opened to sterile field. 15:17:55 Sheath upsized to a 7 Fr Long. 15:18:40 Heparin Bolus 5000 units I.V. was administered by Kelly Howe RN; for anticoagulation; verified with dr garcia 15:20:14 Viperslide Mix(5mg Verapamil/5mg Nitro/20cc Viperslide/100cc Bag NS) 1 bags added to field was administered by Gustavo Ramirez MD; used for procedure; 15:20:21 CXI SUPPORT .035 135 CM STR catheter ([id number]) opened to sterile field. 15:20:39 DIAMONDBACK VIPER .014 335 CM wire ([id number]) opened to sterile field. 15:20:42 DIAMONDBACK Viperslide Lubricant (VPRSLD2) opened to sterile field. 15:21:43 CXI advanced to exchange for viperwire. 15:22:07 Right leg runoff performed. 15:23:39 CXI removed 15:26:01 STEALTH 360 2.00 CLASSIC Atherectomy catheter ([id number]) opened to sterile field. 15:26:49 Diamondback solution initiated IA via Diamondback device per MD: 0.9% NS 1000ml, Viperslide 20ml, Verapamil 5mg, Nitroglycerin 5mg. 15:29:56 Diamondback atherectomy performed on Common Femoral. 15:30:38 several passes made with darcy back in the RT common femoral. 15:34:24 Diamondback atherectomy performed on Superficial Femoral. 15:39:26 Multiple passes made through SFA 15:39:59 Diamondback catheter removed. 15:43:07 Versed 1 mg I.V. was administered by Kelly Howe RN; for sedation; 15:43:10 Fentanyl 50 mcg I.V. was administered by Kelly Howe RN; for sedation; 15:45:33 Inflate balloon Inflation number: 1 A SABER 6.0 X 200 X 150 balloon ([id number]) was prepped and advanced across the Distal Superficial Femoral, Right, then inflated to 4 CHARLES for 1:32 (min:sec). 15:47:59 Inflation number: 1 The SABER 6.0 X 200 X 150 balloon ([id number]) was reinflated across the Mid Common Femoral, Right, to 4 CHARLES for 1:19 (min:sec). 15:48:38 Balloon removed over the wire. 15:50:34 Wire removed. 15:50:54 EXOSEAL 7Fr (EX700) opened to sterile field. 15:51:23 SHEATH 7FR Hiddenite (MKF240) opened to sterile field. 15:52:00 Sheath upsized to a 7 Fr Short. 15:52:00 Sheath removed intact; hemostasis achieved with Exoseal to the Left Femoral artery. 15:52:35 Procedure ended.(Physican Out) 15:54:04 Fluoroscopy time 18.90 minutes. 15:54:10 Fluoroscopy dose: 529 mGy 15:54:10 Flurop Dose total: 529 15:54:14 Contrast amount:Isovue 300 71ml. 15:54:23 Sharps counted by scrub and verified by R.N. 15:54:25 Insertion/operative site no bleeding no hematoma. 15:54:32 Post-op/insertion site Left Femoral artery dressed using a 4 x 4 and Tegaderm. 15:54:39 Post left femerol artery:stable 15:54:47 Post Procedure Pulses reassessed and unchanged 15:54:57 Post-procedure physical assessment completed. ASA score P 2 - A patient with mild systemic disease as per Gustavo Ramirez MD. 15:55:00 Post procedure rhythm: unchanged. 15:55:03 Estimated blood loss: 10 ml 15:55:04 Post procedure instruction explained to patient.Patient verbalizes understanding. 15:56:01 Procedure type changed to Cath procedure, Diagnostic procedure, Sedation Charges, Moderate Sedation up to 45 minutes, Peripheral vascular Intervention, Atherectomy, Atherectomy Fem/Pop w/Plasty 15:56:03 Procedure and supply charges have been captured, reviewed, submitted and are correct. 16:05:26 Procedure Complication : No complications 16:05:28 Vital chart was stopped 16:05:36 See physician's report for complete and final results. 16:05:39 Report given to Pre/Post Procedure Room. 16:05:43 Patient transfered to Pre/Post Procedure Room with Stretcher. 16:05:45 Procedure ended. 16:05:45 Full Disclosure recording stopped 16:05:49 End room use (Document Last) Intervention Summary Intervention Notes Time ActionType Lesion and Equipment Action# Pressure Duration Attributes Used 15:45:33 Inflate Distal SABER 6.0 X 1 4 01:32 balloon Superficial 200 X 150 Femoral, balloon Right ([id number]) 15:47:59 Reinflate Mid Common SABER 6.0 X 1 4 01:19 balloon Femoral, 200 X 150 Right balloon ([id number]) Device Usage Item Name Manufacture Quantity Catalog Number Hospital Part Cu rrent Minimal Lot# / Charge Number Stock Stock Serial# Code ACIST Syringe Acist Medical 1 64783 357109 095171 99 1436 20 (78901) Systems Inc Bag Decanter Microtek 1 771671 02226 99 0294 5 () Medical Inc. Medline Cath Pack Cardinal 1 [id number] 782360 92317 99 1603 5 ([id number]) Health DIAGNOSTIC WIRE [facility] Adalberto 1 778247 777403 044085 99 2804 30 .035 260cm J wire (859243) ACIST Hand Control Acist Medical 1 08646 926010 447351 99 1858 5 (20943) Systems Inc ACIST Manifold Acist Medical 1 99751 686142 980217 99 1875 5 (77531) Systems Inc Tegaderm 4 x 4 3M 1 1626W 540899 800722 99 5325 5 (1626W) PERCUTANEOUS ENTRY [facility] 1 B21859 939659 99 9393 5 19GA needle SHEATH 6Fr Prelude [facility] 1 [id number] 978708 337183 99 9917 5 ([id number]) INFLATOR [facility] 1 LQ1434 873795 997372 99 4883 15 BasixCompak (AF8120) DIAGNOSTIC IMT 5Fr [place] 1 [id number] 882197 472590 99 812 5 Catheter Scientific ([id number]) TORQUE DEVICE [place] 1 TD01 344605 276392 99 9510 5 PLASTIC .038 ( Scientific TD01) SHEATH 7FR Terumo 1 RSR04 312090 141430 99 9940 5 Destination (RSR04) CXI SUPPORT .035 Abzena 1 O68736 239280 668625 99 9881 5 135 CM STR catheter (X29268) DIAMONDBACK VIPER Cardiovascular 1 VPR-GW-FT14 581781 99 9924 5 .014 335 CM wire systems (KGUPVGD90) [facility] 1 VPR-SLD2 731982 99 9973 5 Viperslide systems Lubricant (VPRSLD2) STEALTH 360 2.00 Cardiovascular 1 [id number] 641694 99 9993 5 CLASSIC systems 5 Atherectomy catheter ([id number]) SABER 6.0 X 200 X Cardinal 1 [id number] 234326 99 9992 5 150 balloon Health ([id number]) EXOSEAL 7Fr Cardinal 1 EX700 110749 361435 99 9817 5 (EX700) Health SHEATH 7FR Terumo 1 TKJ669 996895 797995 99 9755 5 Hiddenite (BSV392) Signature Audit [place] Time Signature Unsigned Intra-Procedure 02/21/2018 Shaye Espinal 4:08:34 PM RT(R) Signatures Monitor : Shaye Espinal Signature : RT Date : Time : [place] [id number] [facility] [address]
--- NOTE | ~2018-02-21 | OP ---
PATIENT NAME: CHELY BRADLEY JR MEDICAL RECORD: [id number] :42 LOCATION:D.CAT ADMISSION DATE: SURGEON: THOMAS APREDES MD DATE OF OPERATION: 02/21/2018 PROCEDURE: Rotational atherectomy, PTCA. DESCRIPTION OF PROCEDURE: We placed a left 5-Georgian sheath into the left femoral artery. Then, using an IMT catheter, we used a Wholey wire to get down to multiple areas of 80% to 90% stenosis into the SFA down to distal portion of this vessel. Next, we exchanged the 5-Georgian sheath to a long 7-Georgian sheath and placed it at the level of the femoral head. Next, using exchange catheter, the ViperWire was placed distally and the Diamondback atherectomy was performed with 2.0 yesenia. Multiple passes were made from the femoral head down to distal portion of the SFA at low, medium, and high resolutions. Between each change with speeds, we allowed flushing of the catheter. Next, a long 6.0 x 200 ____ balloon was placed up and down the SFA up to 4 ATMs. This showed excellent resolution of all lesions, severe diffuse diabetic stenosis, no significant residual. Sheath was closed with ExoSeal device placed in the lab. TRANSINT:[id number] Voice Confirmation ID: [id number] DOCUMENT ID: [id number] THOMAS PARDEES MD at 1214 CC: [id number] DICTATION DATE: 02/21/18 1559 CHORAL TEACHER: 02/21/18 1736 DEP CLI 02/21/18 [place] [id number] [place] [address]
[~2018-02-21 11:08] MED LIST changes: +ALDACTONE50 MG PO; +BAYER ASPIRIN325 MG PO; +COZAAR100 MG PO; +LANOXIN125 MCG PO
[2018-02-21 12:04] VITALS: BP 174/59; Ht 175.3 cm; Wt 77.3 kg
[2018-02-21 12:13] LABS: BASOPHILS 0.6 % (0-2); HEMATOCRIT 43.4 % (42.0-54.0); HEMOGLOBIN 14.9 g/dL (13.5-17.5); IMMATURE GRANULOCYTES 0.5 % (0-5); LYMPHOCYTES 19.9 % (15-50); MCH 31.9 pg (26.0-34.0); MCHC 34.3 g/dL (31.0-37.0); MCV 92.9 fL (80.0-100.0); MEAN PLATELET VOLUME 10.2 fL (7.4-10.4); MONOCYTES 11.4 % (2-11); NEUTROPHILS 64.6 % (40-80); PLATELET COUNT 237 10x3/uL (130-400); RBC 4.67 10x6/uL (4.20-6.10); RDW 13.3 % (11.5-14.5); WBC 10.4 10x3/uL (4.8-10.8)
[2018-02-21 12:29] LABS: ANION GAP 16.1 mmol/L (8-16); CALCIUM 9.9 mg/dL (8.5-10.1); CARBON DIOXIDE 23.8 mmol/L (21.0-32.0); CREATININE - SERUM 1.9 mg/dL (0.6-1.3); POTASSIUM - SERUM 4.9 mmol/L (3.5-5.1)
== END 2018-02-21 19:44 | disposition home or self-care (01) ==
LOC: D.CATH 11:08
PROVIDERS: Internal Medicine Interventional Cardiology
DX: I25.10 Atherosclerotic heart disease of native coronary artery without angina pectoris (principal); I70.219 Atherosclerosis of native arteries of extremities with intermittent claudication, unspecified extremity; I51.9 Heart disease, unspecified; E11.9 Type 2 diabetes mellitus without complications; Z01.812 Encounter for preprocedural laboratory examination

== ENCOUNTER 2018-10-24 13:57 | Inpatient (IN) | payer MEDICARE, OTHER ==
[~2018-10-24] VITALS: Ht 175.3 cm; Wt 77.1 kg
--- NOTE | ~2018-10-24 | HEMODYNAMI ---
PATIENT:CHELY BRADLEY JR MEDICAL RECORD: [id number] : 42 [address] [id number] ADMISSION DATE: 10/24/18 Generatedon:10/26/20188:49 Patient name: CHELY BRADLEY Patient #: [id number] SSN: : 1940 Date of study: 10/26/2018 Page: Of Hemodynamic Procedure Report Patient Data Patient Demographics Procedure consent was obtained First Name: CHELY Gender: Male Last Name: KIRK Suffix: [facility] Initial: Lashawn : 1940 Patient #: [id number] Age: 78 year(s) Race: Unknown Additional ID: [id number] Contact details [address]: [address] [place] [address] State: [place] City: [place] Zip code: [address] Past Medical History Allergies: No known allergies Admission Admission Data Admission Date: 10/24/2018 Admission Time: 19:33 Room #: [facility] Procedure Procedure Types Cath Procedure Diagnostic Procedure LHC LHC w/Coronaries w/Grafts Sedation Charges Moderate Sedation up to 15 minutes Procedure Description Procedure Date Procedure Date: 10/26/2018 Procedure Start Time: 8:30 Procedure End Time: 8:48 Procedure Staff Name Function Gustavo Ramirez MD Performing Physician Devyn Plata RN Podiatry Assistant Jolie Cline RN Nurse Tonja Ivy RT Monitor Deyanira Landry RT Scrub Procedure Data Cath Procedure Fluoroscopy Diagnostic fluoroscopy Total fluoroscopy Time: 5.9 time: 5.9 min min Diagnostic fluoroscopy Total fluoroscopy dose: 558 dose: 558 mGy mGy Contrast Material Contrast Material Type Amount (ml) Isovue 300 117 Entry Location Entry Primary Successful Side Size (Fr) Upsize Upsize Entry Closure S uccessful Closure Location 1 (Fr) 2 (Fr) Remarks Device Remarks Femoral Right 6 Fr 6 Fr Exoseal artery Mid-Length Short Estimated blood loss: 5 ml Diagnostic catheters Device Type Used For End Catheter Placement MULTIPACK JL 4.0 5Fr Left Coronary catheter Angiography MULTIPACK 3DRC 5Fr Right Coronary catheter Angiography MULTIPACK 3DRC 5Fr Internal mammary catheter arteriography DIAGNOSTIC LCB 5Fr SVG Angiography catheter ([id number]) DIAGNOSTIC MPA-2 5Fr SVG Angiography catheter ([id number]) MULTIPACK Pigtail 5 Fr LV Angiography catheter Procedure Complications No complications Procedure Medications Medication Administration Route Dosage 0.9% NaCl I.V. 100 ml/hr Oxygen etCO2 Nasal cannula 2 l/min Lidocaine 2% added to field 20 Heparin Flush Bag added to field 2 bags (1000units/500ml NS) Versed I.V. 2 mg Fentanyl I.V. 50 mcg Versed I.V. 2 mg Fentanyl I.V. 50 mcg Hemodynamics Rest Heart Rate: 82 (bpm) Pressure Samples Time Site Value (mmHg) Purpose Heart Use Rate(bpm) 8:42 LV 137/5,18 EDP 96 Gradients Valve Time Site Site Mean SEP/DFP Peak To Heart Use 1 2 (mmHg) (sec/min) Peak Rate (mmHg) (bpm) Aortic 8:43 LV AO 94 Snapshots Pre Cath Intra NCS Post Cath Vital Signs Time Heart Resp SPO2 etCO2 NIBP (mmHg) Rhythm Pain Sedation Rate (ipm) (%) (mmHg) Status Level (bpm) 8:00:02 80 13 98 38.5 131/87(112) NSR 0 (11) 10(A) , No pain 8:04:10 79 12 98 34 115/78(94) NSR 0 (11) 10(A) , No pain 8:08:20 78 13 98 30 108/66(90) NSR 0 (11) 10(A) , No pain 8:12:28 78 14 98 30 105/64(81) NSR 0 (11) 10(A) , No pain 8:16:32 80 16 99 34 106/70(86) NSR 0 (11) 10(A) , No pain 8:20:36 82 14 98 24.2 104/75(86) NSR 0 (11) 10(A) , No pain 8:24:39 82 16 98 21.9 111/74(96) NSR 0 (11) 10(A) , No pain 8:28:45 82 17 98 3.7 109/72(90) NSR 0 (11) 10(A) , No pain 8:32:49 84 13 98 36.3 116/78(104) NSR 0 (11) 10(A) , No pain 8:36:52 87 15 97 43.1 102/71(90) NSR 0 (11) 9(A) , No pain 8:41:41 91 15 96 33.2 102/78(92) NSR 0 (11) 9(A) , No pain 8:45:43 94 20 97 31.7 115/82(90) NSR 0 (11) 10(A) , No pain Medications Time Medication Route Dose Verified Delivered Reason Notes Effe ctiveness by by 7:59:11 0.9% NaCl I.V. 100 Gustavo Jolie used for ml/hr [facility] procedure RN 7:59:19 Oxygen etCO2 2 Gustavo Jolie used for Nasal l/min [facility] procedure cannula MD ZAMORA 7:59:25 Lidocaine 2% added 20ml Gustavo Chapmanory for local to vial [facility] anesthetic field MD DELUCA 7:59:30 Heparin Flush added 2 Gustavo Gustavo used for Bag to bags [facility] procedure (1000units/500ml field MD DELUCA NS) 8:28:23 Versed I.V. 2 mg Gustavo Jolie for [facility] sedation RN 8:28:28 Fentanyl I.V. 50 Gustavo Jolie for mcg JamesShai Cline sedation RN 8:33:43 Versed I.V. 2 mg Gustavo Jolie for [facility] sedation RN 8:33:47 Fentanyl I.V. 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 7:39:28 Diagnostic Cath status Elective 7:39:38 Plan of Care:Hemodynamics will remain stable., Cardiac rhythm will remain stable., Comfort level will be maintained., Respiratory function will remain adequate., Patient/ family verbilizes understanding of procedure., Procedure tolerated without complication., Recovers from procedure without complications.. 7:39:40 Time tracking: Regular hours (M-F 7:00 - 5:00) 7:42:59 Devyn Plata RN sent for patient. Start room use. 7:54:04 Patient received from PCU to CCL 1 Alert and oriented. Tansferred to table in Supine position. 7:54:06 Warm blankets applied, and marshall hugger turned on for patient comfort. 7:54:06 Correct patient and procedure confirmed by team. 7:54:07 ECG and BP/O2 sat monitors applied to patient. 7:54:08 Full Disclosure recording started 7:59:02 Vital chart was started 7:59:11 0.9% NaCl 100 ml/hr I.V. was administered by Jolie Cline RN; used for procedure; 7:59:19 Oxygen 2 l/min etCO2 Nasal cannula was administered by Jolie Cline RN; used for procedure; 7:59:25 Lidocaine 2% 20ml vial added to field was administered by Gustavo Ramirez MD; for local anesthetic; 7:59:30 Heparin Flush Bag (1000units/500ml NS) 2 bags added to field was administered by Gustavo Ramirez MD; used for procedure; 8:00:50 Baseline sample Acquired. 8:01:03 H&P Date Dictated: 10/24/2018 Within 30 days and on chart.. 8:01:05 Pre-procedure instructions explained to patient. 8:01:05 Pre-op teaching completed and patient verbalized understanding. 8:01:08 Family in patients room. 8:01:10 Patient NPO since Midnight. 8:01:41 Rhythm: sinus rhythm 8:01:53 Patient allergic to No known allergies 8:01:57 Is the patient allergic to Iodine/contrast media? No. 8:02:01 Is patient on blood thinner?Yes 8:02:11 ACC The patient was administered the following blood thiners within the last 24 hours: ACCPlavix 8:02:13 Patient diabetic? Yes. 8:02:30 Previous problem with sedation/anesthesia? No ? 8:02:32 Snore? Yes 8:02:33 Sleep apnea? No 8:02:35 Deviated septum? No 8:02:35 Opens mouth fully? Yes 8:02:36 Sticks out tongue? Yes 8:02:39 Airway obstruction? No ? 8:02:42 Dentures? No ? 8:02:53 Pre procedure: right dorsailis pedis pulse 2+ Normal; easily identifiable; not easily obliterated 8:06:49 Patient pain scale 0/10 ?. 8:07:00 IV patent on arrival in left forearm with 0.9% NaCl at KVO. 8:07:05 Lab results completed and on chart. 8:07:13 Bilateral groins area was prepped with chlora-prep and draped in sterile fashion 8:07:14 Alarms reviewed by R. N. 8:07:15 Sharps counted by scrub and verified by R.N. 8:07:22 Use device set Femoral Dx 8:07:23 ACIST Syringe (22273) opened to sterile field. 8:07:23 Bag Decanter (2002S) opened to sterile field. 8:07:24 Medline Cath Pack ([id number]) opened to sterile field. 8:07:25 DIAGNOSTIC WIRE .035 260cm J wire (860613) opened to sterile field. 8:07:28 ACIST Hand Control (74051) opened to sterile field. 8:07:28 ACIST Manifold (26591) opened to sterile field. 8:07:29 DIAGNOSTIC Multipack 5Fr catheter set ([id number]) opened to sterile field. 8:07:32 Tegaderm 4 x 4 (1626W) opened to sterile field. 8:13:00 Physician paged 8:15:08 Zero performed for pressure channel P1 8:27:39 Final Timeout: patient, procedure, and site verified with staff and physician. All members of the team are in agreement. 8:27:41 Left groin site verified by team. 8:27:54 Physical assessment completed. ASA score P 2 - A patient with mild systemic disease as per Gustavo Ramirez MD. 8:27:58 Sedation plan: IV Moderate Sedation Medication:Versed, Fentanyl 8:28:23 Versed 2 mg I.V. was administered by Jolie Cline RN; for sedation; 8:28:28 Fentanyl 50 mcg I.V. was administered by Jolie Cline RN; for sedation; 8:29:57 Procedure started. 8:30:08 Local anesthetic to right femoral artery with Lidocaine 2% by Gustavo Ramirez MD.INITIAL ACCESS ONLY 8:30:34 A 6 Fr Mid-Length sheath was inserted into the Right Femoral artery 8:32:02 SHEATH 6FR Brite Tip 35cm ([id number]) opened to sterile field. 8:32:28 A MULTIPACK JL 4.0 5Fr catheter was advanced over the wire and used for Left Coronary Angiography. 8:33:18 Catheter removed. 8:33:43 Versed 2 mg I.V. was administered by Jolie Cline RN; for sedation; 8:33:45 A MULTIPACK 3DRC 5Fr catheter was advanced over the wire and used for Right Coronary Angiography. 8:33:47 Fentanyl 50 mcg I.V. was administered by Jolie Cline RN; for sedation; 8:36:47 A MULTIPACK 3DRC 5Fr catheter was advanced over the wire and used for Internal mammary arteriography.TO LAD 8:37:59 A DIAGNOSTIC LCB 5Fr catheter ([id number]) was advanced over the wire and used for SVG Angiography.TO OM 8:38:18 Catheter removed. 8:38:38 A DIAGNOSTIC MPA-2 5Fr catheter ([id number]) was advanced over the wire and used for SVG Angiography.TO RCA 8:41:28 Catheter removed. 8:41:36 A MULTIPACK Pigtail 5 Fr catheter was advanced over the wire and used for LV Angiography. 8:41:59 SHEATH 6FR [place] (ILR820) opened to sterile field. 8:42:15 LV gram done using PRITCHETT 8:42:16 LV hemodynamics recorded. 8:42:18 Injector settings: Ml/sec: 10, Volume: 20, 8:42:55 EF : 30 % 8:43:11 Catheter removed. 8:43:23 Sheath upsized to a 6 Fr Short. 8:43:23 Sheath removed intact; hemostasis achieved with Exoseal to the Right Femoral artery. 8:43:24 Procedure ended.(Physican Out) 8:43:57 Fluoroscopy time 05.90 minutes. 8:44:13 Flurop Dose total: 558 8:44:13 Fluoroscopy dose: 558 mGy 8:44:17 Contrast amount:Isovue 300 117ml. 8:44:19 Sharps counted by scrub and verified by R.N. 8:44:20 Insertion/operative site no bleeding no hematoma. 8:44:23 Post-op/insertion site Right Femoral artery dressed using a 4 x 4 and Tegaderm. 8:44:26 Post right femoral artery:stable, clean and dry 8:44:29 Post Procedure Pulses reassessed and unchanged 8:46:14 Post-procedure physical assessment completed. ASA score P 2 - A patient with mild systemic disease as per Gustavo Ramirez MD. 8:46:16 Post procedure rhythm: unchanged. 8:46:20 Estimated blood loss: 5 ml 8:46:22 Post procedure instruction explained to patient.Patient verbalizes understanding. 8:46:22 Patient needs reinforcement of post procedure teaching. 8:46:43 Procedure type changed to Cath procedure, Diagnostic procedure, LHC, LHC w/Coronaries w/Grafts, Sedation Charges, Moderate Sedation up to 15 minutes 8:46:47 Procedure Complication : No complications 8:46:50 See physician's report for complete and final results. 8:48:11 EXOSEAL 6Fr (EX600) opened to sterile field. 8:48:24 Procedure and supply charges have been captured, reviewed, submitted and are correct. 8:48:31 Vital chart was stopped 8:48:33 Report given to PCU. 8:48:38 Patient transfered to PCU with Bed. 8:48:40 Procedure ended. 8:48:40 Full Disclosure recording stopped 8:48:47 End room use (Document Last) Device Usage Item Name Manufacture Quantity Catalog Hospital Part Current Minimal L ot# / Number Charge Number Stock Stock Serial# Code ACIST Acist 1 72386 037531 308868 921259 20 Syringe Medical (38529) Systems Inc Bag Microtek 1 2001S 157754 18391 433894 5 Decanter Medical Inc. () Medline Medline 1 [id number] 419943 16942 157231 5 Cath Pack ([id number]) DIAGNOSTIC St Adalberto 1 968467 767537 896221 150324 30 WIRE .035 260cm J wire (912490) ACIST Hand Acist 1 04796 515350 211262 411090 5 Control Medical (90651) Systems Inc ACIST Acist 1 01034 691510 799247 847480 5 Manifold Medical (14267) Systems Inc DIAGNOSTIC Cardinal 1 HH3604 098674 37082 236560 30 Multipack Health 5Fr catheter set (UN2939) Tegaderm 4 3M 1 1626W 122977 366820 768894 5 x 4 (1626W) SHEATH 6FR Cardinal 1 [id number] 018366 320881 079170 1 Planwise 35cm (073146D) MULTIPACK Cardinal 1 789948 5 JL 4.0 5Fr Health catheter MULTIPACK Cardinal 1 846038 5 3DRC 5Fr Health catheter DIAGNOSTIC Cardinal 1 [id number] 810433 933028 509742 5 LCB 5Fr Health catheter (581975D) DIAGNOSTIC Cardinal 1 [id number] 244579 566489 488455 5 MPA-2 5Fr Health catheter (222483T) MULTIPACK Cardinal 1 256631 5 Pigtail 5 Health Fr catheter SHEATH 6FR Terumo 1 LFP702 737782 017408 036561 40 [place] (HOT848) EXOSEAL 6Fr Cardinal 1 EX600 650807 565782 175750 10 (EX600) Health Signature Audit Ozan Stage Time Signature Unsigned Intra-Procedure 10/26/2018 Tonja 8:48:59 AM Counts RT(R) Signatures Monitor : Tonja Signature : Counts RT Date : Time : [id number] [place] [address]
--- NOTE | 2018-10-24 14:47 | NUR ---
pt gone to ct at this time.
[2018-10-24 14:58] LABS: BASOPHILS 0.6 % (0-2); EOSINOPHILS 3.7 % (0-7); HEMATOCRIT 38.5 % (42.0-54.0); HEMOGLOBIN 13.3 g/dL (13.5-17.5); IMMATURE GRANULOCYTES 0.1 % (0-5); LYMPHOCYTES 20.9 % (15-50); MCH 31.6 pg (26.0-34.0); MCHC 34.5 g/dL (31.0-37.0); MCV 91.4 fL (80.0-100.0); MONOCYTES 9.7 % (2-11); RBC 4.21 10x6/uL (4.20-6.10); RDW 12.7 % (11.5-14.5); WBC 7.2 10x3/uL (4.8-10.8)
[2018-10-24 15:14] LABS: PLATELET COUNT 176 10x3/uL (130-400)
--- NOTE | 2018-10-24 15:30 | NUR ---
PT STABLE, CALL LIGHT WITHIN REACH, DENIES NEEDS, FAMILY AT BEDSIDE, WILL CONTINUE TO MONITOR.
[2018-10-24 15:37] LABS: ALBUMIN 3.4 g/dL (3.4-5.0); ALKALINE PHOSPHATASE 96 U/L (46-116); ALT (SGPT) 31 U/L (10-68); BILIRUBIN - TOTAL 0.45 mg/dL (0.2-1.3); CALCIUM 8.6 mg/dL (8.5-10.1); CARBON DIOXIDE 23.5 mmol/L (21.0-32.0); CHLORIDE - SERUM 96 mmol/L (98-107); CKMB 3.8 U/L (0.0-3.6); CREATINE KINASE 118 UL (21-232); CREATININE - SERUM 2.3 mg/dL (0.6-1.3); MAGNESIUM - SERUM 1.8 mg/dL (1.8-2.4); POTASSIUM - SERUM 5.3 mmol/L (3.5-5.1); PROTEIN - SERUM 7.7 g/dL (6.4-8.2); SODIUM 131 mmol/L (136-145); TROPONIN-I 0.042 ng/mL (0.000-0.060); UREA NITROGEN 27 mg/dL (7-18); eGFR NON AFRICAN AMERICAN 29 mL/min (90-120)
[2018-10-24 15:41] LABS: CALC OSMOLALITY 290 mosm/kg (275-300); GLUCOSE 508 mg/dL (74-106)
[2018-10-24 15:44] LABS: APTT 25.8 SECONDS (22.8-39.4); INR 0.96 (0.85-1.17); PROTIME 12.3 SECONDS (11.6-15.0)
[2018-10-24 15:51] VITALS: BP 117/81
--- NOTE | 2018-10-24 16:30 | NUR ---
PT STABLE, CALL LIGHT WITHIN REACHN, DENIES NEEDS, WILL CONTINUE TO MONITOR, FAMILY AT BEDSIDE.
[2018-10-24 17:00] VITALS: BP 109/79
--- NOTE | 2018-10-24 17:30 | NUR ---
PT STABLE, CALL LIGHT WITHIN REACH, DENIES NEEDS, WILL CONTINUE TO MONTIOR, FAMILY AT BEDSIDE.
[2018-10-24 18:00] VITALS: BP 114/81
[2018-10-24 19:00] VITALS: BP 147/90
--- NOTE | 2018-10-24 19:05 | NUR ---
PT REPORT HANDED OFF TO NOAH MESSER. PT STABLE AT THIS TIME.
--- NOTE | 2018-10-24 20:33 | NUR ---
REPORT RECEIVED FROM GUI ZAMORA.
[2018-10-24 21:04] LABS: CKMB 32.2 U/L (0.0-3.6)
[2018-10-24 21:26] LABS: CREATINE KINASE 391 UL (21-232)
[2018-10-24 21:28] LABS: TROPONIN-I 9.414 ng/mL (0.000-0.060)
--- NOTE | 2018-10-24 21:42 | NUR ---
DR. COKER PAGED FOR ELEVATED LAB VALUES, AWAITING CALL BACK.
--- NOTE | 2018-10-24 22:04 | NUR ---
DR. PAREDES CONSULTED AND AWARE OF ELEVATED TROPONIN. NO NEW ORDERS AT THIS TIME.
[2018-10-24] MEDS ORDERED: HYDROCHLOROTH12.5 M1 PO (23:45)
[2018-10-25] VITALS (8 sets, daily range): BP systolic 90–128; BP diastolic 49–69; Ht 175.3 cm; Wt 77.1 kg
[2018-10-25 04:24] LABS: HEMATOCRIT 36.8 % (42.0-54.0); HEMOGLOBIN 12.8 g/dL (13.5-17.5); LYMPHOCYTES 21.4 % (15-50); MCH 31.5 pg (26.0-34.0); MCHC 34.8 g/dL (31.0-37.0); MCV 90.6 fL (80.0-100.0); MEAN PLATELET VOLUME 10.6 fL (7.4-10.4); NEUTROPHILS 62.6 % (40-80); PLATELET COUNT 161 10x3/uL (130-400); RBC 4.06 10x6/uL (4.20-6.10); RDW 12.5 % (11.5-14.5); WBC 7.1 10x3/uL (4.8-10.8)
[2018-10-25 05:06] LABS: ALKALINE PHOSPHATASE 80 U/L (46-116); ALT (SGPT) 32 U/L (10-68); BILIRUBIN - TOTAL 0.29 mg/dL (0.2-1.3); CALC OSMOLALITY 284 mosm/kg (275-300); CARBON DIOXIDE 26.4 mmol/L (21.0-32.0); CHLORIDE - SERUM 103 mmol/L (98-107); CKMB 26.3 U/L (0.0-3.6); CREATINE KINASE 323 UL (21-232); CREATININE - SERUM 2.1 mg/dL (0.6-1.3); DIGOXIN 0.87 ng/mL (0.90-2.00); GLUCOSE 160 mg/dL (74-106); POTASSIUM - SERUM 4.2 mmol/L (3.5-5.1); PROTEIN - SERUM 6.8 g/dL (6.4-8.2); SODIUM 139 mmol/L (136-145); TROPONIN-I 12.064 ng/mL (0.000-0.060); UREA NITROGEN 25 mg/dL (7-18); eGFR NON AFRICAN AMERICAN 33 mL/min (90-120)
[2018-10-25] MEDS ORDERED: BAYER CHEWABLE81 MG PO (06:18)
[2018-10-25 10:00] LABS: CKMB 23.4 U/L (0.0-3.6); CREATINE KINASE 280 UL (21-232)
--- NOTE | 2018-10-25 10:00 | NUR ---
UP IN CHAIR WITH CALL LIGHT IN REACH. TELEMETRYSR. IV PATENT. WILL CONT. PLAN OF CARE.
[2018-10-25 10:01] LABS: TROPONIN-I 9.782 ng/mL (0.000-0.060)
--- NOTE | 2018-10-25 13:45 | NUR ---
CONSENTS SIGNED FOR [facility].
--- NOTE | 2018-10-25 14:57 | NUR ---
RATIONALE FOR SCD'S EXPLAINED. REFUSES SCD'S
--- NOTE | 2018-10-25 16:10 | NUR ---
DR. ORLANDO CONSULTED PER DR. LIAO.
--- NOTE | 2018-10-25 19:30 | NUR ---
PT RESTING IN BED. PT HAS FAMILY IN ROOM. NAME AND DATE PLACED ON BOARD. NS INFUSING ORDERED. PT HAS NO S/S OF DISTRESS. BEDLOW AND CALL LIGHT IN REACH. WILL CPOC
[2018-10-25 19:37] LABS: APPEARANCE CLEAR (CLEAR); BILIRUBIN NEGATIVE (NEGATIVE); COLOR STRAW (YELLOW); GLUCOSE NEGATIVE (NEGATIVE); KETONE NEGATIVE (NEGATIVE); NITRITE NEGATIVE (NEGATIVE); PROTEIN NEGATIVE (NEGATIVE); UROBILINOGEN NORMAL (NORMAL)
[2018-10-25 19:41] LABS: PROTEIN - URINE 17.4 mg/dL (0.0-11.9)
--- NOTE | 2018-10-25 20:02 | NUR ---
PT SITTING ON SIDE OF BED. FAMILY IN ROOM. PT IS AAO. PT WILL CALL FOR ASSIST WHEN NEEDED. NO S/S OF DISTRESS. WILL CPOC
--- NOTE | 2018-10-25 22:00 | NUR ---
FAMILY ASSISTED PT WITH A SHOWER. PT HOOKED BACK TO NS ONCE SHOWER DONE. BEDCHANGED. PT DENIES ANY NEEDS. NO S/S OF DISTRESS. WILLCPOC
--- NOTE | 2018-10-26 01:12 | NUR ---
PT ASLEEP. NO S/S OF DISTRESS. DENIES ANY NEEDS. WILL CPOC
--- NOTE | 2018-10-26 01:13 | NUR ---
PT ASLEEP, PT NPO AFTER MIDNIGHT. PT VERBALIZED UNDERSTANDING. PT HAS NO S/S OF DISTRESS. BELKIS CPOC
[2018-10-26 04:00] VITALS: BP 105/67
[2018-10-26 04:10] LABS: BASOPHILS 0.6 % (0-2); EOSINOPHILS 7.2 % (0-7); HEMATOCRIT 37.2 % (42.0-54.0); HEMOGLOBIN 12.6 g/dL (13.5-17.5); IMMATURE GRANULOCYTES 0.3 % (0-5); LYMPHOCYTES 25.4 % (15-50); MCHC 33.9 g/dL (31.0-37.0); MCV 91.6 fL (80.0-100.0); MEAN PLATELET VOLUME 10.6 fL (7.4-10.4); MONOCYTES 9.2 % (2-11); NEUTROPHILS 57.3 % (40-80); PLATELET COUNT 161 10x3/uL (130-400); RBC 4.06 10x6/uL (4.20-6.10); RDW 12.7 % (11.5-14.5); WBC 6.8 10x3/uL (4.8-10.8)
[2018-10-26 04:14] LABS: ANION GAP 11.7 mmol/L (8-16); CALCIUM 8.2 mg/dL (8.5-10.1); CARBON DIOXIDE 25.2 mmol/L (21.0-32.0); CREATININE - SERUM 1.8 mg/dL (0.6-1.3)
[2018-10-26 04:15] LABS: POTASSIUM - SERUM 4.9 mmol/L (3.5-5.1)
--- NOTE | 2018-10-26 07:45 | NUR ---
PRE-OPS GIVEN. TO PREVENTIVE MAINTENANCE COORDINATOR BY BED.
--- NOTE | 2018-10-26 10:56 | NUR ---
BED REST UP. GROIN STABLE.
--- NOTE | 2018-10-26 11:01 | NUR ---
B/P LEFT 112/62. B/O RIGHT ARM 92/58. WILL CONT. TO MONITOR.
[2018-10-26 12:17] VITALS: BP 154/75
[2018-10-26] MEDS ORDERED: TOUJEO SOL300 UNIT/1 SC (13:58)
[2018-10-26] MEDS ORDERED: VICTOZA0.6 MG/0.1 SQ (14:00)
--- NOTE | 2018-10-26 15:13 | NUR ---
IV AND TELEMETRY DCD. DC PLANS GIVEN. UNDERSTANDING VOICED. ESCORTED TO CAR BY W/C.
--- NOTE | 2018-10-26 15:19 | MORECARE ---
CASE MANAGEMENT DISCHARGE SUMMARY PATIENT: CHELY BRADLEY JR UNIT: [id number] ADM DATE: 10/24/18 AGE: 78 : 41 SEX: M ROOM/BED: D.2115 AUTHOR: CARY AARON PHYSICIAN: REFERRING PHYSICIAN: BECKA LIAO MD DATE OF SERVICE: 10/26/18 Discharge Plan Patient Name: CHELY BRADLEY [facility] [facility] 1940 Planned Disposition: Home Anticipated Discharge Date: 10/26/18 Discharge Date: 10/26/2018 Expected LOS: 2 Initial Reviewer: [id number] Initial Review Date: 10/26/2018 Generated: 10/26/18 4:19 pm Patient Name: CHELY BRADLEY Page [id number] at 1519 All edits/amendments must be made on the electronic document DICTATION DATE: 10/26/189 BIOLOGY ADJUNCT INSTRUCTOR: YANA 10/26/18 1519 RPT#: [id number] DC DATE:10/26/18 STATUS: DIS IN [facility] [address] [place] [address] END OF REPORT
--- NOTE | 2018-10-30 15:01 | OP ---
PATIENT NAME: CHELY BRADLEY JR MEDICAL RECORD: [id number] :42 LOCATION:D.M2 D.2115 ADMISSION DATE:10/24/18 SURGEON: THOMAS PAREDES MD DATE OF OPERATION: 10/26/2018 PROCEDURE: Left heart catheterization, selective coronary angiography, right femoral artery approach. CATHETERS: A 6 long catheter due to marked tortuosity of the iliacs. The procedure was well tolerated. The patient returned to francois. Sheath removed. ExoSeal device was placed. FINDINGS: Left ventriculography in 30-degree PRITCHETT view shows global hypokinesis. Overall reduced LV systolic function, 30% to 35%. CORONARY ANATOMY: LEFT MAIN: Fills for a very short period of time, basically totally occluded. LAD AND CIRCUMFLEX: Totally occluded. RIGHT CORONARY ARTERY: Fills for maybe a quarter of its portion and is totally occluded. BYPASS GRAFTS: 1. AGMBOA to LAD is widely patent throughout its course. Small LAD distally. 2. Circumflex OM graft ties into 2 OMs and is widely patent. 3. Saphenous vein graft to the right: Area of previous stenting is widely patent. Other vessels are widely patent. IMPRESSION: Suspect strain from underlying acute dehydration, etc. No evidence of progression of flow obstructive coronary artery disease. TRANSINT:[id number] Voice Confirmation ID: [id number] DOCUMENT ID: [id number] THOMAS PAREDES MD at 1501 CC: [id number] DICTATION DATE: 10/26/18 0849 HEAD WAITER/WAITRESS BANQUET: 10/26/18 1005 DIS IN 10/26/18 [facility] [address] [place] [address]
--- NOTE | 2018-10-30 15:01 | CN ---
PATIENT NAME:CHELY BRADLEY JR MEDICAL RECORD: [id number] : 42 LOCATION:D[address]abella D.2115 ADMIT DATE: 10/24/18 ACCOUNT: [id number] CONSULTING PHYSICIAN: THOMAS PAREDES MD REFERRING PHYSICIAN: BECKA LIAO MD DATE OF CONSULTATION: 10/25/2018 HISTORY: A 78-year-old gentleman with a known history of coronary artery disease, most recent intervention to the saphenous vein graft and to the right approximately one year ago. He has a history of cardiomyopathy, improved on therapy; as well as hypertension; and diabetes. He is admitted with dehydration, acute renal injury, and hyperglycemia. Currently creatinine 2.1 with hydration. He had marked elevation in troponin, felt this is demand ischemia versus acute coronary event. We are asked to see him concerning cardiovascular status. PAST MEDICAL HISTORY: 1. Hypertension. 2. Hyperlipidemia. 3. Peripheral vascular disease, status post intervention. 4. Coronary artery disease, status post intervention. 5. Diabetes mellitus. ALLERGIES: None known. MEDICATIONS: Typically, include Plavix 75 daily, metoprolol 50 daily, digoxin 0.125 daily, pravastatin 20 daily, aspirin 81 daily, and Synthroid 50 mcg daily. SOCIAL HISTORY: Retired. Nonsmoker. Previously, he exercised, but none recently. REVIEW OF SYSTEMS: The patient reports easy bruising but reports no swollen glands. The patient reports no fever, no night sweats, no significant weight gain, no significant weight loss. No significant exercise tolerance. The patient reports no dry eyes, no irritation, no vision change. Patient reports no difficulty hearing and no ear pain. Patient reports no frequent nose bleeds or nose and sinus problems. Patient reports on arm pain on exertion. No shortness of breath while lying down. No history of heart murmur. Patient reports no cough, no wheezing or coughing up blood. Patient reports no abdominal pain, no vomiting. Normal appetite. No diarrhea and not vomiting blood. No nausea and no constipation. Patient reports no incontinence. No difficulty urinating. No hematuria. No increased frequency. Patient reports no muscle aches. No weakness, no arthralgias, no back pain. No swelling of the extremities. Patient reports no abnormal mole, no jaundice, no rashes. Reports no loss of consciousness. No weakness and no numbness. No seizures, dizziness, or headaches. The patient reports no depression, no sleep disturbance, feeling safe in a relationship and no alcohol abuse. Patient reports on fatigue. Reports no runny nose or sinus pressure. No itching, no hives, and no frequent sneezing. PHYSICAL EXAMINATION: GENERAL: Middle-aged gentleman, in no acute distress. VITAL SIGNS: Blood pressure 128/64. Pulse 79 and regular. HEENT: Normocephalic and atraumatic. NECK: No JVD or bruit. CONSULT REPORT [id number] CHELY BRADLEY JR HEART: Regular. LUNGS: Lung agee are clear. ABDOMEN: Soft and nontender. EXTREMITIES: Pulses decreased at 1+ with no edema. NEUROLOGIC: Grossly intact. DIAGNOSTIC DATA: ECG shows nonspecific ST-T changes, unchanged from previous. IMPRESSION: Acute coronary syndrome. Given degree of troponin elevation I think diagnostic angiography is indicated. Further recommendations based on results of the above. TRANSINT:[id number] Voice Confirmation ID: [id number] DOCUMENT ID: [id number] THOMAS PAREDES MD at 1501 CC: [id number] DICTATION DATE: 10/25/18 1446 BUSINESS ACCOUNT SPECIALIST: 10/25/18 1753 DIS IN 10/26/18 [facility] [address] [place] [address]
== END 2018-10-26 15:14 | disposition home or self-care (01) | DRG 683 ==
LOC: D.ER 13:57 → D.M2 19:33 → D.EDHOLD 19:33 → D.M2 20:32
PROVIDERS: Family Medicine; Internal Medicine; Internal Medicine Interventional Cardiology; ADMIT Family Medicine
PROC: B2181ZZ Fluoroscopy of Left Internal Mammary Bypass Graft using Low Osmolar Contrast (ICD-10-PCS; 2018-10-26)
PROC: B2151ZZ Fluoroscopy of Left Heart using Low Osmolar Contrast (ICD-10-PCS; 2018-10-26)
PROC: 4A023N7 Measurement of Cardiac Sampling and Pressure, Left Heart, Percutaneous Approach (ICD-10-PCS; 2018-10-26)
PROC: B2131ZZ Fluoroscopy of Multiple Coronary Artery Bypass Grafts using Low Osmolar Contrast (ICD-10-PCS; principal; 2018-10-26 07:30)
DX: N17.9 Acute kidney failure, unspecified (principal); I42.9 Cardiomyopathy, unspecified; E86.0 Dehydration; I25.10 Atherosclerotic heart disease of native coronary artery without angina pectoris; E11.22 Type 2 diabetes mellitus with diabetic chronic kidney disease; I12.9 Hypertensive chronic kidney disease with stage 1 through stage 4 chronic kidney disease, or unspecified chronic kidney disease; N18.9 Chronic kidney disease, unspecified; E11.65 Type 2 diabetes mellitus with hyperglycemia; E11.51 Type 2 diabetes mellitus with diabetic peripheral angiopathy without gangrene; E11.40 Type 2 diabetes mellitus with diabetic neuropathy, unspecified; E78.5 Hyperlipidemia, unspecified; F41.9 Anxiety disorder, unspecified; E87.5 Hyperkalemia; M54.2 Cervicalgia

== ENCOUNTER → 2018-11-19 10:28 | Outpatient (CLI) | payer MEDICARE, OTHER ==
[2018-10-25 10:46] VITALS: BMI 25.1
[~2018-11-19 10:28] MED LIST changes: +BAYER CHEWABLE81 MG PO; +HYDROCHLOROTH12.5 M1 PO; +TOUJEO SOL300 UNIT/1 SC; +VICTOZA0.6 MG/0.1 SQ
== END | disposition home or self-care (01) ==
LOC: D.CT 10:28
DX: I70.8 Atherosclerosis of other arteries (principal)

== ENCOUNTER 2018-12-11 05:52 | Outpatient (CLI) | payer MEDICARE, OTHER ==
[~2018-12-11] VITALS: Ht 175.3 cm; Wt 77.3 kg
[2018-12-11 06:13] LABS: BASOPHILS 0.6 % (0-2); HEMOGLOBIN 14.2 g/dL (13.5-17.5); IMMATURE GRANULOCYTES 0.1 % (0-5); LYMPHOCYTES 25.1 % (15-50); MCH 31.1 pg (26.0-34.0); MCHC 33.8 g/dL (31.0-37.0); MCV 92.1 fL (80.0-100.0); MEAN PLATELET VOLUME 10.6 fL (7.4-10.4); MONOCYTES 10.9 % (2-11); NEUTROPHILS 58.3 % (40-80); RBC 4.56 10x6/uL (4.20-6.10); RDW 12.8 % (11.5-14.5); WBC 6.8 10x3/uL (4.8-10.8)
[2018-12-11 06:27] LABS: CALCIUM 9.1 mg/dL (8.5-10.1); CREATININE - SERUM 2.3 mg/dL (0.6-1.3)
[2018-12-11 06:32] LABS: APTT 26.2 SECONDS (22.8-39.4)
[2018-12-11 06:33] LABS: INR 1.03 (0.85-1.17)
[2018-12-11 06:47] LABS: PLATELET COUNT 209 10x3/uL (130-400)
[2018-12-11 07:13] VITALS: Ht 175.3 cm; Wt 77.3 kg
--- NOTE | 2018-12-11 09:02 | NUR ---
0845 PT RETURNED TO 2515, CASE CANCELLED DUE TO ABNORMAL LABS. MARY KAY KHOURY RN EXPLAINED TO PT AND FAMILY. 0900 IV DC'D WITH CATH INTACT. PT. DECLINED OFFER OF FLUIDS, AWAITING TO BE SPOKE WITH BY AMY RADIOLOGY NURSE. APPT WITH NEPHROLOGY GIVEN.
--- NOTE | 2018-12-11 09:16 | NUR ---
5114 AMY WILL PHONE PT LATER WITH THE INFORMATION SHE WANTED TO GIVE HIM. PT. LEFT AMB WITH FAMILY.
== END 2018-12-11 09:15 | disposition home or self-care (01) ==
LOC: D.OPS 05:52 → D.RAD 08:00 → D.OPS 09:15
PROVIDERS: ATTEND General Practice
DX: I70.8 Atherosclerosis of other arteries (principal)

== ENCOUNTER → 2019-08-27 08:57 | Outpatient (CLI) | payer MEDICARE, OTHER ==
[2018-12-11 07:13] VITALS: BMI 25.1
--- NOTE | 2019-08-30 12:01 | EC ---
PATIENT:CHELY BRADLEY JR DATE OF SERVICE: 08/27/19 SEX: M MEDICAL RECORD: [id number] DATE OF : [birth year] [facility] AGE OF PATIENT: 79 ADMISSION DATE: 08/27/19 REFERRING PHYSICIAN: INTERPRETING PHYSICIAN: THOMAS PAREDES MD ECHOCARDIOGRAM REPORT ECHO CHARGES 4 ECHO COMPLETE Date: 08/27/19 CLINICAL DIAGNOSIS: CARDIOMYOPATHY H/O HTN/PVD ECHOCARDIOGRAPHIC MEASUREMENTS (adult normal given) AC root (d.<3.7cm) 3.5 cm LV Septum d (<1.2 cm> 2.2 cm Valve Excursion 1.2 cm LV Septum (systole) 2.6 cm Left Atria (s.<4.0cm> 5.3 cm LVPW d(<1.2cm) 1.4 cm RV (d.<2.3cm) 2.7 cm LVPW (sytole) 2.0 cm LV diastole(<5.6CM) 5.3 cm MV E-F(>70mm/sec) cm LV systole 3.5 cm LVOT Diameter 2.1 cm MV exc.(>10mm) cm Est.ejection fraction (50-75%) % DOPPLER: LVIT cm/sec A 91.0 cm/sec E 77.0 cm/sec LA cm/sec RVSP 37.0 mmHg LVOT 68.0 cm/sec AOP1/2T m/s Asc. Ao 206 cm/sec RVOT 59.0 cm/sec RA cm/sec PA 91.0 cm/sec AV Gradient Peak 17.0 mmHg AV Mean 10.5 mmHg AV Area 0.9 cm MV Gradient Peak 5.3 mmHg MV Mean 2.4 mmHg MV Area cm COMMENTS: OP - HC Flume Worker: 1 EUFEMIA JHONATHAN Airplane Pilot: 3 Dr. Verduzco TAPE# PACS Pericardial Effusion N DATE OF SERVICE: Adequate 2-D echo, color-flow and spectral Doppler, and M-mode. LVH is present. LV internal dimensions are normal. LV showed mild global hypokinesis, reduced EF, estimated at 40% to 45%. Aortic valve sclerosis without stenosis by Doppler interrogation. Left atrium is dilated 5.3 cm. Mitral valve is thickened. Moderate MRSA grossly normal. [id number] TR. TRANSINT:[id number] Voice Confirmation ID: [id number] DOCUMENT ID: [id number] ECHOCARDIOGRAM REPORT [id number] CHELY BRADLEY JR, GREGORY A MD at 1201 CC: [id number] DICTATION DATE: 08/29/19 160 SUPPORT MERCHANDISER: 08/29/19 1821 DEP CLI 08/27/19 [place] [id number] [place] [id number]
== END | disposition home or self-care (01) ==
LOC: D.HCCECHO 08:57 → D.HCCARDIO 10:00
PROVIDERS: ATTEND Internal Medicine Interventional Cardiology
DX: I42.9 Cardiomyopathy, unspecified (principal)

== ENCOUNTER 2020-05-21 18:01 | Inpatient (IN) | payer MEDICARE, OTHER ==
[~2020-05-21] VITALS: Ht 175.3 cm; Wt 74.8 kg
[2020-05-21 18:29] LABS: BASOPHILS 0.2 % (0-2); HEMOGLOBIN 13.8 g/dL (13.5-17.5); LYMPHOCYTES 20.7 % (15-50); MCH 30.7 pg (26.0-34.0); MCHC 33.7 g/dL (31.0-37.0); MCV 91.1 fL (80.0-100.0); MEAN PLATELET VOLUME 10.3 fL (7.4-10.4); MONOCYTES 14.6 % (2-11); NEUTROPHILS 62.5 % (40-80); PLATELET COUNT 205 10x3/uL (130-400); RDW 13.1 % (11.5-14.5)
[2020-05-21 18:36] LABS: ANION GAP 11.6 mmol/L (8-16); CALCIUM 8.4 mg/dL (8.5-10.1); CARBON DIOXIDE 28.3 mmol/L (21.0-32.0); CREATININE - SERUM 2.1 mg/dL (0.6-1.3); POTASSIUM - SERUM 3.9 mmol/L (3.5-5.1)
--- NOTE | 2020-05-21 18:48 | NUR ---
AR SAVES ONLINE VIA TELEMED AT THIS TIME. DR. MONTOYA IS NEUROLOGIST. ALL CONSENTS SIGNED. NIH STROKE SCALE PERFORMED AT THIS TIME. PER DR MONTOYA, NIH STROKE SCALE 0, TPA NOT RECCOMENDED AT 1854. DR RUSSELL IN ROOM FOR RECCOMENDATIONS.
[2020-05-21 18:50] LABS: ALBUMIN 3.4 g/dL (3.4-5.0); BILIRUBIN - TOTAL 0.48 mg/dL (0.2-1.3); DIGOXIN 0.87 ng/mL (0.90-2.00); PROTEIN - SERUM 7.5 g/dL (6.4-8.2); THYROID STIMULATING HORMONE 0.57 uIU/mL (0.36-3.74)
[2020-05-21 19:00] VITALS: BP 99/61
[2020-05-21 19:04] LABS: APTT 27.2 SECONDS (22.8-39.4); PROTIME 13.2 SECONDS (11.6-15.0)
[2020-05-21 20:00] VITALS: BP 108/69
[2020-05-21 21:36] VITALS: BP 124/54; BMI 24.4
[2020-05-22] VITALS: BP 106/66
[2020-05-22 04:00] VITALS: BP 107/75
--- NOTE | 2020-05-22 04:19 | NUR ---
ASSESSED AT THE TIME OF ARRIVAL FROM THE ER. PT IS ALERT AND ORIENTED, ABLE TO VERBALIZE NEEDS. HAS REMAINED WITH HIM. HE IS WEARING TELEMETRY AND HAS BEEN RUNNING IN THE LOW 40'S AND 50'S WITH OCCASIONAL 30'S. HE IS ASYMPTOMATIC OF ANY PROBLEMS WITH THIS HEART RATED. AT THIS TIME HE SI ASLEEP AFTER BEING CHECKED ON BY STAFF FOR THE LOW HEART RATE.
--- NOTE | 2020-05-22 07:54 | NUR ---
ALERT AND ORIENTED. LUNGS CLEAR BILATERALLY. HEART SOUNDS S1 AND S2 HEARD IN ALL MCCARTNEY. BOWEL SOUNDS ACTIVE X 4. IV TO RFA AND LFA SL PATENT WITHOUT REDNESS. DENIES NEEDS. AT BEDSIDE. BED LOW. CALL [place] AND PERSONAL ITEMS IN REACH. WILL CONTINUE TO MONITOR.
--- NOTE | 2020-05-22 09:08 | NUR ---
DR GUREDA ROONEY FOR CONSULT.
[2020-05-22 09:43] VITALS: BP 119/74
[2020-05-22 13:13] VITALS: BMI 24.3
[2020-05-22 13:29] VITALS: BP 120/59
--- NOTE | 2020-05-22 14:31 | NUR ---
MRI CANCELLED PER DR CROFT.
[2020-05-22 17:17] VITALS: BP 100/53
--- NOTE | 2020-05-22 20:00 | NUR ---
PATIENT RESTING IN BED WATCHING TV WITH AT BEDSIDE. NO S/S OF ACUTE DISTRESS. NO C/O AT THIS TIME. PATIENT HAS LEFT AND RIGHT FOREARM, SALINE LOC. IVS ARE PATENT WITHOUT REDNESS, SWELLING, OR TENDERNESS. PATIENT IS ON TELEMETRY: 53 SINUS BURAK. PATIENT IS UP ADLIB TO THE BATHROOM. CALL LIGHT WITHIN REACH. WILL CONTINUE TO MONITOR.
[2020-05-22 22:06] VITALS: BP 127/61
--- NOTE | 2020-05-22 23:30 | NUR ---
PATIENT HAD PREVIOUSLY GONE HOME TO SLEEP. PATIENT HAD BECOME INCREASINGLY ANXIOUS AND REPORTED THAT HE HAD LIP TINGLING "LIKE I HAD BEFORE WHEN I HAD A STROKE". PATIENT EYES: PERRLA PATIENT SMILE: EVEN AND SYMMETRICAL. 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 SHOWED UP LATER STATING HE HAD CALLED HER VERY ANXIOUSLY ASKING HER TO COME BACK. PATIENT IS RESTING IN BED NO S/S OF ACUTE DISTRESS. NO C/O AT THIS TIME. IS AT BEDSIDE. CALL LIGHT WITHIN REACH. WILL CONTINUE TO MONITOR.
[2020-05-23] VITALS: BP 123/55
[2020-05-23 04:00] VITALS: BP 112/71
--- NOTE | 2020-05-23 04:37 | NUR ---
I have reviewed this patient and I concur with the Shift Assessment completed by the Licensed Practical Nurse today this shift.
[2020-05-23 05:26] LABS: ANION GAP 10.1 mmol/L (8-16); CALCIUM 8.3 mg/dL (8.5-10.1); CARBON DIOXIDE 29.9 mmol/L (21.0-32.0); CREATININE - SERUM 1.6 mg/dL (0.6-1.3)
--- NOTE | 2020-05-23 08:35 | NUR ---
RESTING IN BED, NO DISTRESS NOTED, SL IN PLACE, FAMILY IN ROOM, CONT TO MONITOR FOR STROKE SYSPTOMS
[2020-05-23 09:49] VITALS: BP 118/79
--- NOTE | 2020-05-23 10:47 | HP ---
PATIENT: CHELY BRADLEY JR MEDICAL RECORD: [id number] ACCOUNT: [id number] LOCATION:[id number] : 41 ADMISSION DATE: 05/21/20 PCP: BECKA LIAO MD HISTORY AND PHYSICAL EXAMINATION REASON FOR ADMISSION: Inability to talk. HISTORY OF PRESENT ILLNESS: The patient is a 79-year-old male with metabolic syndrome, poorly controlled. He has also had significant vascular disease with remote left carotid endarterectomy, CABG, and coronary stents. He had cardiac catheterization a year ago that showed stable stents. 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 He waited a few minutes, called his and he could get out the words, "I am having trouble talking." He came to the ED and a CT scan of the brain showed no acute bleed or stroke. He had a tele-neuro evaluation attended by Dr. Casper and neurologist did not recommend anticoagulation. The patient's symptoms resolved within 3 or 4 hours. He has been asymptomatic since. He denies headache, visual change. He has a remote history of a left carotid endarterectomy by Dr. Dodson at [facility] several years ago and was told he had a right stenosis of 50%. He denies any recent palpitations. PAST MEDICAL HISTORY: CAD, jfdug-vq-nmupdfo renal insufficiency, systolic congestive heart failure, last echo showed EF of 30% to 35%, type 2 diabetes mellitus, obesity, hypertension, hospitalized one of 19 for dehydration, hypothyroidism, diabetic neuropathy, peripheral vascular disease, carotid occlusive disease, cataracts, and ganglion cyst. PAST SURGICAL HISTORY: He had cataract removed from his right eye, history of CABG, PTCA, left carotid endarterectomy. SOCIAL HISTORY: Remote smoker, retired and . 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 FAMILY HISTORY: Father , unknown cause. Mother of heart disease. One sister with diabetes and another with heart disease and diabetes. PAST SURGICAL HISTORY: PTCA, CABG in 05/2005, left carotid endarterectomy, and cataract surgery in his right eye. CURRENT MEDICATIONS: Digoxin 0.125 daily, pravastatin 40 mg at bedtime, Toprol-XL 50 mg daily, gabapentin 300 mg p.o. t.i.d., aspirin 81 mg a day, sliding scale NovoLog insulin a.c. p.o. sliding scale, levothyroxine mcg p.o. q.a.m. a.c., Karis Dorman 55 units subQ q.p.m. REVIEW OF SYSTEMS: GENERAL: Denies fever, fatigue, or headache. HEENT: No recent visual change, transient expressive aphasia as mentioned that has now resolved. Denies any sore throat. He has chronic hearing difficulty. RESPIRATORY: No SOB, cough or sputum production. CARDIAC: No exertional rest chest pain. He has a history of mild claudication in both legs. ENDOCRINE: Denies polyuria, polydipsia, heat or cold intolerance. NEUROLOGIC: Denies headaches, seizures, or memory loss. Expressive aphasia, tingling of the right lip yesterday for about 3-4 hours, it resolved. HISTORY AND PHYSICAL [id number] CHELY BRADLEY JR GENITOURINARY: Nocturia once nightly. MUSCULOSKELETAL: Chronic lumbago without sciatica. PSYCHIATRIC: Denies depressed mood. INTEGUMENT: No rash or itching. PHYSICAL EXAMINATION: GENERAL: Alert 79-year-old male appearing older than stated age with clear speech. VITAL SIGNS: Temperature 97.9 Fahrenheit, pulse is 51 and regular, respirations are 17, blood pressure 107/75 with a sat of 96% on room air. HEENT: Normocephalic. Eyes are clear with lens implant on the right. No facial asymmetry is noted. Tongue is midline. Ears clear with poor hearing. NECK: Faint bruits in both carotids are noted bilaterally. No JVD. CHEST: Distant breath sounds without wheeze or rales. HEART: Bradycardic without gallop. ABDOMEN: Soft, nontender, obese. No organomegaly. GENITOURINARY: Deferred. EXTREMITIES: 1+ pretibial edema bilaterally. He has poor DP pulses bilaterally. No skin ulcers noted on his feet. NEUROLOGIC: Oriented to person, place, and time. Cranial nerves intact. Gait normal. Speech is clear. Dtzprf-ok-brzw is normal. Tandem walking is fairly normal. LABORATORY DATA: EKG shows sinus bradycardia. CT of the brain shows no acute abnormalities. CTA of the brain shows advanced cerebrovascular atherosclerotic disease with high-grade left internal carotid stenosis, measuring 76%, and pose prior carotid endarterectomy picture; 55% right internal carotid artery stenosis at the origin with a high-grade stenosis in the skull base, high-grade stenosis in the M1 segment of the left MCA. Occlusion of the left vertebral artery and 90% stenosis of the right subclavian. CBC is normal. Chemistry shows a BUN and creatinine of 30 and 2.1, blood sugar 223, down to 97. Liver functions are normal. Glucose 130. INR is 1.00. Digoxin 0.87. ASSESSMENT: 1. Left MCA, TIA, expressive aphasia, resolved. 2. Severe left carotid artery and right subclavian stenoses. 3. Left MCA stenoses. 4. Right carotid stenosis. 5. AODM, chronic renal insufficiency nsduk-bc-frnxtaw, systolic congestive heart failure with ejection fraction 30% to 35%, hyperlipidemia, remote nicotine use, and hypothyroidism. PLAN: The patient is currently on aspirin, asymptomatic. We will have neurology consultation. I have talked to Dr. Montelongo from CV surgery to consider options for his stenosis if MRI of the brain is unremarkable. TRANSINT:[id number] Voice Confirmation ID: [id number] DOCUMENT ID: [id number] HISTORY AND PHYSICAL [id number] CHELY BRADLEY JR, TIMOTHY MD at 1047 CC: [id number] DICTATION DATE: 05/22/20 1359 CONVENTION SERVICES MANAGER: 05/22/20 1840 ADM IN [facility] [address] [place] [address]
[2020-05-23] MEDS ORDERED: ELIQUIS2.5 MG PO (11:22)
--- NOTE | 2020-05-23 12:51 | NUR ---
RETURNED FROM MRI, PROVIDED D/C PAPERS, VOICED NO CONCERNS, REMOVED SL X2, RANDOLPH WELL
[2020-05-23 13:17] VITALS: Ht 175.3 cm; Wt 74.8 kg
--- NOTE | 2020-05-23 15:48 | MORECARE ---
CASE MANAGEMENT DISCHARGE SUMMARY PATIENT: CHELY BRADLEY UNIT: [id number] ADM DATE: 05/21/20 AGE: 79 : 41 SEX: M ROOM/BED: D.2216 AUTHOR: CARY AARON PHYSICIAN: REFERRING PHYSICIAN: BECKA LIAO MD DATE OF SERVICE: 05/23/20 Discharge Plan Patient Name: CHELY BRADLEY Facility: [facility]:[place] : 1940 Planned Disposition: Home Anticipated Discharge Date: Discharge Date: 05/23/2020 Expected LOS: Initial Reviewer: [email or web address] Initial Review Date: 05/21/2020 Generated: 05/23/20 4:48 pm Comments DCP- Discharge Planning Updated by [email or web address]: Jess Huff on 05/23/20 2:[address] Patient Name: CHELY BRADLEY Admission Status: ER Accout number: [id number] Admission Date: 05-21-2020 : 1940 Admission Diagnosis: Attending: BECKA LIAO Current LOS: 2 Anticipated DC Date: Planned Disposition: Home Primary Insurance: MEDICARE A & B Discharge Planning Comments: CM met with patient to complete initial dc planning assessment. CM educated patient on the CM role and verbal consent given by patient to complete assessment. Patient lives at home with family. Patient is independent. At discharge patient plans to return home and feels this is a safe discharge. CM discussed availability of home health, rehab services, and medical equipment. Patient will have family to transport home. Patient denied known discharge needs at this time. CM will continue to follow and will assist as needed with dc plans/needs. Development Specialist: Jess Huff DCPIA - Discharge Planning Initial Assessment Updated by [email or web address]: Jess Huff on 05/23/20 3:45 pm * Is the patient Alert and Oriented? Yes * How many steps to enter\exit or inside your home? 14 * PCP EMIRATI * Pharmacy [facility] * Preadmission Environment Home with Family * ADLs Independent * Equipment None * List name and contact numbers for known caregivers / representatives who currently or will assist patient after discharge: BEN RIOS [phone] OSMANY RIOS [phone] * Verbal permission to speak to the caregivers and representatives has been obtained from the patient. Yes * Community resources currently utilized None * Additional services required to return to the preadmission environment? No * Can the patient safely return to the preadmission environment? Yes * Has this patient been hospitalized within the prior 30 days at any hospital? No Patient Name: CHELY BRADLEY Page [id number] at 1548 All edits/amendments must be made on the electronic document DICTATION DATE: 05/23/20 1548 TREE INSPECTOR: YANA 05/23/20 1548 RPT#: [id number] DC DATE:05/23/20 STATUS: DIS IN [facility] [id number] [place] [address] END OF REPORT
--- NOTE | 2020-05-24 09:36 | MORECARE ---
CASE MANAGEMENT DISCHARGE SUMMARY PATIENT: CHELY BRADLEY UNIT: [id number] ADM DATE: 05/21/20 AGE: 79 : 41 SEX: M ROOM/BED: D.2216 AUTHOR: CARY AARON PHYSICIAN: REFERRING PHYSICIAN: BECKA LIAO MD DATE OF SERVICE: 05/24/20 Discharge Plan Patient Name: CHELY BRADLEY Facility: [facility]:[place] : 1940 Planned Disposition: Home Anticipated Discharge Date: Discharge Date: 05/23/2020 Expected LOS: Initial Reviewer: [email or web address] Initial Review Date: 05/21/2020 Generated: 05/24/20 10:36 am Comments DCP- Discharge Planning Updated by [email or web address]: Jess Huff on 05/23/20 2:[address] Patient Name: CHELY BRADLEY Admission Status: ER Accout number: [id number] Admission Date: 05-21-2020 : 1940 Admission Diagnosis: Attending: BECKA LIAO Current LOS: 2 Anticipated DC Date: Planned Disposition: Home Primary Insurance: MEDICARE A & B Discharge Planning Comments: CM met with patient to complete initial dc planning assessment. CM educated patient on the CM role and verbal consent given by patient to complete assessment. Patient lives at home with family. Patient is independent. At discharge patient plans to return home and feels this is a safe discharge. CM discussed availability of home health, rehab services, and medical equipment. Patient will have family to transport home. Patient denied known discharge needs at this time. CM will continue to follow and will assist as needed with dc plans/needs. Parts Coordinator: Jess Huff DCPIA - Discharge Planning Initial Assessment Updated by [email or web address]: Jess Huff on 05/23/20 3:45 pm * Is the patient Alert and Oriented? Yes * How many steps to enter\exit or inside your home? 14 * PCP WELSH * Pharmacy [facility] * Preadmission Environment Home with Family * ADLs Independent * Equipment None * List name and contact numbers for known caregivers / representatives who currently or will assist patient after discharge: BEN RIOS [phone] OSMANY RIOS [phone] * Verbal permission to speak to the caregivers and representatives has been obtained from the patient. Yes * Community resources currently utilized None * Additional services required to return to the preadmission environment? No * Can the patient safely return to the preadmission environment? Yes * Has this patient been hospitalized within the prior 30 days at any hospital? No Last DP export: 05/23/20 2:48 pm Patient Name: CHELY BRADLEY Page [id number] at 0936 All edits/amendments must be made on the electronic document DICTATION DATE: 05/24/20935 OPTICAL FABRICATOR: YANA 05/24/20935 RPT#: [id number] DC DATE:05/23/20 STATUS: DIS IN [facility] [address] [place] [address] END OF REPORT
== END 2020-05-23 13:30 | disposition home or self-care (01) | DRG 68 ==
LOC: D.ER 18:01 → D.MS 20:56
PROVIDERS: Emergency Medicine; ADMIT Family Medicine; ATTEND Family Medicine
DX: I66.02 Occlusion and stenosis of left middle cerebral artery (principal); I13.0 Hypertensive heart and chronic kidney disease with heart failure and stage 1 through stage 4 chronic kidney disease, or unspecified chronic kidney disease; I50.20 Unspecified systolic (congestive) heart failure; I65.22 Occlusion and stenosis of left carotid artery; E11.65 Type 2 diabetes mellitus with hyperglycemia; I25.10 Atherosclerotic heart disease of native coronary artery without angina pectoris; N18.9 Chronic kidney disease, unspecified; E11.22 Type 2 diabetes mellitus with diabetic chronic kidney disease; E11.40 Type 2 diabetes mellitus with diabetic neuropathy, unspecified; E11.51 Type 2 diabetes mellitus with diabetic peripheral angiopathy without gangrene; E66.9 Obesity, unspecified; Z68.24 Body mass index [BMI] 24.0-24.9, adult; E03.9 Hypothyroidism, unspecified; R40.2364 Coma scale, best motor response, obeys commands, 24 hours or more after hospital admission; R40.2144 Coma scale, eyes open, spontaneous, 24 hours or more after hospital admission; R40.2244 Coma scale, best verbal response, confused conversation, 24 hours or more after hospital admission; Z87.891 Personal history of nicotine dependence

== ENCOUNTER 2020-06-08 09:33 | Inpatient (IN) | payer MEDICARE, OTHER ==
[~2020-06-08] VITALS: Ht 175.3 cm; Wt 76.4 kg
--- NOTE | ~2020-06-08 | HEMODYNAMI ---
PATIENT:CHELY BRADLEY JR MEDICAL RECORD: [id number] : 42 LOCATION:[facility]# [id number] ADMISSION DATE: 06/16/20 Generatedon:06/16/202013:46 Patient name: CHELY BRADLEY Patient #: [id number] SSN: : 1940 Date of study: 06/16/2020 Page: Of Hemodynamic Procedure Report Patient Data Patient Demographics Procedure consent was obtained First Name: CHELY Gender: Male Last Name: KIRK Suffix: [facility] Initial: Lashawn : 1940 Patient #: [id number] Age: 79 year(s) Race: Unknown Additional ID: [id number] Contact details [address]: [address] [place] [address] State: [place] City: [place] Zip code: [address] Past Medical History Allergies: No known allergies Admission Admission Data Admission Date: 06/16/2020 Admission Time: 5:42 Room #: [facility] Height (in.): 69 BSA: 1.9 (m2) Height (cm.): 175.26 BMI: 24.37 (kg/m2) Weight (lbs.): 165 Weight (kg.): 74.84 Procedure Procedure Types Cath Procedure Peripheral Cath Diagnostic Procedure Mold Swabber Peripheral Procedures Peripheral vascular Intervention Stent Carotid Stent Procedure Description Procedure Date Procedure Date: 06/16/2020 Procedure Start Time: 11:40 Procedure Staff Name Function Gordy Knox MD Performing Physician Theresa Marie RT Manager Ship Chiquis Bernabe RN Nurse Esvin Shea RT Scrub Procedure Data Cath Procedure Fluoroscopy Diagnostic fluoroscopy Total fluoroscopy Time: time: 21.9 min 21.9 min Diagnostic fluoroscopy Total fluoroscopy dose: 822 dose: 822 mGy mGy Contrast Material Contrast Material Type Amount (ml) Isovue 300 75 Diagnostic catheters Device Type Used For End Catheter Placement Merit Impress Owusu 5FR. 100CM catheter ([id number]) Merit Impress Owusu 5Fr 125CM catheter ([id number]) Cook HN5 5F/100CM catheter ([id number]) Procedure Medications Medication Administration Route Dosage Heparin Flush Bag added to field 4 bags (1000units/500ml NS) Lidocaine 1% added to field 20 Heparin Bolus I.V. 5000 units Heparin Bolus I.V. 2500 units Heparin Bolus I.V. 2500 units Fentanyl I.V. 25 mcg Versed I.V. 1 mg Fentanyl I.V. 50 mcg Fentanyl I.V. 25 mcg Hemodynamics Rest BSA: 1.9 (m2) O2 Consumption: Estimated: 212.24 (ml/min) O2 Consumption indexed: Estimated:111.71 (ml/min/m) Heart Rate: 63 (bpm) Snapshots Pre Cath Intra NCS Post Cath Vital Signs Time Heart Resp SPO2 etCO2 NIBP (mmHg) Rhythm Pain Sedation Rate (ipm) (%) (mmHg) Status Level (bpm) 11:31:26 71 8 100 40.4 Measuring NSR 0 (11) 10(A) , No pain 11:31:57 70 9 100 38.1 207/92(168) NSR 0 (11) 10(A) , No pain 11:36:29 71 8 100 40.4 205/92(163) NSR 0 (11) 10(A) , No pain 11:41:03 70 10 100 38.1 203/94(165) NSR 0 (11) 10(A) , No pain 11:45:38 56 11 100 37.3 193/91(168) NSR 0 (11) 10(A) , No pain 11:50:09 64 10 100 36.6 211/98(157) NSR 0 (11) 10(A) , No pain 11:52:34 71 10 100 37.4 211/94(163) NSR 0 (11) 9(A) , No pain 11:57:04 60 10 100 41.1 198/80(150) NSR 0 (11) 9(A) , No pain 12:01:39 45 7 99 38.8 194/73(152) NSR 0 (11) 9(A) , No pain 12:06:11 61 14 99 37.4 199/85(148) NSR 0 (11) 9(A) , No pain 12:10:43 67 9 99 40.4 196/89(151) NSR 0 (11) 9(A) , No pain 12:15:18 54 12 99 38.9 190/85(157) NSR 0 (11) 9(A) , No pain 12:19:51 45 13 99 37.4 194/80(156) NSR 0 (11) 9(A) , No pain 12:24:23 44 13 99 38.1 193/78(157) NSR 0 (11) 9(A) , No pain 12:28:57 64 13 99 35.1 188/72(157) NSR 0 (11) 9(A) , No pain 12:33:26 66 9 99 41.8 196/89(150) NSR 0 (11) 9(A) , No pain 12:38:00 65 12 100 35.9 193/84(152) NSR 0 (11) 9(A) , No pain 12:42:32 67 12 99 35.8 190/83(153) NSR 0 (11) 9(A) , No pain 12:47:05 65 17 99 36.6 194/83(155) NSR 0 (11) 9(A) , No pain 12:51:37 59 14 99 35.1 193/82(150) NSR 0 (11) 9(A) , No pain 12:56:08 51 30 99 35.1 177/85(142) NSR 0 (11) 9(A) , No pain 13:00:36 55 7 99 36.6 175/85(148) NSR 0 (11) 9(A) , No pain 13:05:02 45 12 100 38.8 173/79(140) NSR 0 (11) 9(A) , No pain 13:10:01 56 15 99 41.1 Measuring NSR 0 (11) 9(A) , No pain 13:10:28 56 13 100 39.6 170/86(141) NSR 0 (11) 9(A) , No pain 13:14:50 63 16 99 37.3 185/89(140) NSR 0 (11) 9(A) , No pain 13:19:16 58 3 100 39.6 180/86(162) NSR 0 (11) 9(A) , No pain 13:23:49 52 13 100 42.6 194/67(139) NSR 0 (11) 9(A) , No pain 13:28:19 52 3 100 37.3 190/90(158) NSR 0 (11) 9(A) , No pain 13:32:49 66 17 100 40.4 200/89(147) NSR 0 (11) 9(A) , No pain 13:37:22 73 12 100 33.6 214/100(160) NSR 0 (11) 9(A) , No pain 13:42:02 62 15 100 39.6 177/82(148) NSR 0 (11) 9(A) , No pain Medications Time Medication Route Dose Verified Delivered Reason Notes Effe ctiveness by by 11:31:32 Heparin Flush added 4 Gordy Kaminski used for Bag to bags Lisette Knox procedure (1000units/500ml field MD DELUCA NS) 11:31:48 Lidocaine 1% added 20ml Gordy Kaminski for local to vial Lisette Knox anesthetic field MD DELUCA 11:40:37 Versed I.V. 1 mg Gordy Sim for Lisette Bernabe RN sedation 11:41:15 Fentanyl I.V. 50 Gordy Sim for [facility] Lisette Bernabe RN sedation 11:50:45 Heparin Bolus I.V. 5000 Gordy Sim Per units Lisette Bernabe RN physician 12:20:14 Heparin Bolus I.V. 2500 Gordy Sim Per units Lisette Bernabe RN physician 12:50:20 Heparin Bolus I.V. 2500 Gordy Sim Per units Lisette shin MD 12:59:10 Fentanyl I.V. 25 Gordy Sim for [facility] Lisette Bernabe RN sedation 13:09:29 Fentanyl I.V. 25 Gordy Sim for [facility] Lisette Bernabe RN sedation Procedure Log Time Note 7:19:57 Patient Height : 69 inches 7:20:09 Patient Weight : 165 lbs 7:23:01 Use device set IR Diagnostic 7:23:02 Tegaderm 4 x 4 (1626W) opened to sterile field. 7:23:03 Sterile Angiographic Pack opened to sterile field. 7:23:04 Bag Decanter (2001S) opened to sterile field. 7:23:05 ACIST Manifold (13989) opened to sterile field. 7:23:06 ACIST Hand Control (25856) opened to sterile field. 7:23:07 ACIST Syringe (71730) opened to sterile field. 7:23:28 SHEATH 5FR Metz (ESD874) opened to sterile field. 7::29 TUBING Contrast Injection High Pressure (CKZ276K) opened to sterile field. 7:24:06 ALFORD 260 wire (A20210) opened to sterile field. 7:24:06 CHOICE PT Extra Support J 300cm guide wire ([id number]) opened to steril e field. 7:24:07 Micropuncture VSI 4FR kit opened to sterile field. 7:24:26 A Weimob Owusu 5FR. 100CM catheter ([id number]) was advanced over the wire and used for . 7:26:30 - 11:07:20 Time tracking: Regular hours (M-F 7:00 - 5:00) 11:07:28 Plan of Care:Hemodynamics will remain stable., Cardiac rhythm will remain stable., Comfort level will be maintained., Respiratory function will remain adequate., Patient/ family verbilizes understanding of procedure., Procedure tolerated without complication., Recovers from procedure without complications.. 11:07:35 Patient received from Outpatients to IR Alert and oriented. Tansferred to table in Supine position. 11:07:39 Signed procedure consent form obtained from patient. 11:07:41 - 11:07:47 H&P Date Dictated: 06/16/2020 Within 30 days and on chart., H&P Addendum completed by physician on day of procedure. (MUST COMPLETE FOR ALL OUTPATIENTS). 11:07:49 Pre-procedure instructions explained to patient. 11:07:50 Pre-procedure instructions explained to patient. 11:07:53 Pre-op teaching completed and patient verbalized understanding. 11:08:00 Family in waiting room. 11:08:15 Patient NPO since Midnight. 11:08:31 Patient allergic to No known allergies 11:08:38 Is the patient allergic to Iodine/contrast media? No. 11:08:46 Is patient on blood thinner?Yes 11:08:49 Patient diabetic? Yes. 11:08:50 If diabetic: On Metformin? No 11:08:52 - 11:09:07 ----Pre-sedation anethsthesia assessment.---- 11:09:11 Previous problem with sedation/anesthesia? No ? 11:09:15 Snore? Yes 11:09:17 Sleep apnea? No 11:09:21 Deviated septum? No 11:09:23 Opens mouth fully? Yes 11:09:25 Sticks out tongue? Yes 11:09:31 Airway obstruction? Yes CAD 11:09:37 Dentures? No ? 11:10:25 Right groin area was prepped with chlora-prep and draped in sterile fashion 11:11:12 - 11:11:45 Pre procedure: right dorsailis pedis pulse Doppler 11:11:51 Pre procedure: right posterior tibial pulse Doppler 11:11:54 - 11:29:35 ECG and BP/O2 sat monitors applied to patient. :29:36 Vital chart was started 11::37 Baseline sample Acquired. :39 Full Disclosure recording started ::42 - 11:31:32 Heparin Flush Bag (1000units/500ml NS) 4 bags added to field was administered by Gordy Knox MD; used for procedure; Verbal order read back and verified. 11::48 Lidocaine 1% 20ml vial added to field was administered by Gordy brown MD; for local anesthetic; Verbal order read back and verified. 11:34:49 - 11:34:57 Baseline sample Acquired. 11:35:00 Baseline sample Acquired. 11:35:04 Baseline sample Acquired. 11:35:06 - 11:39:13 INFLATOR BasixTOUCH (KO1360) opened to sterile field. 11:39:23 Cook RAABE 6FR. 90cm guide sheath opened to sterile field. 11:39:33 Physician arrived 11:39:34 --------ALL STOP TIME OUT------ 11:39:35 Final Timeout: patient, procedure, and site verified with staff and physician. All members of the team are in agreement. 11:39:40 Fire Safety Assessment: A--An alcohol-based skin anteseptic being used preoperatively., C--Open oxygen or nitrous oxide is being used. 11:39:55 3b) 30-44 Moderately reduced kidney function. 11:40:29 Procedure started. 11:40:34 Local anesthetic to right femoral artery with Lidocaine 1% by Gordy Knox MD.INITIAL ACCESS ONLY 11:40:37 Versed 1 mg I.V. was administered by Chiquis Bernabe RN; for sedation; Verbal order read back and verified. 11:40:50 Arterial access obtained using ultrasound guidance. 11:41:15 Fentanyl 50 mcg I.V. was administered by Chiquis Bernabe RN; for sedation ; Verbal order read back and verified. 11:50:45 Heparin Bolus 5000 units I.V. was administered by Chiquis Bernabe RN; Per physician; Verbal order read back and verified. 11:54:53 Angiography was performed. 11:59:53 ROADRUNNER .035 145 glide wire (Y63792) opened to sterile field. 12:13:52 Inflate balloon Inflation number: 1 A Evercross 8 x 2 x 135 Balloon ([id number]) was prepped and advanced across the Undefined1 , then inflated . 12:14:51 SPIDER EMBOLIC PROTECTION DEVICE 5MM ([id number]) opened to sterile field. 12:16:39 Inflate balloon Inflation number: 2 A VIATRAC 6 x 2 x 135 balloon ([id number]) was prepped and advanced across the Undefined1 , then inflated . 12:20:14 Heparin Bolus 2500 units I.V. was administered by Chiquis Bernabe RN; Per physician; Verbal order read back and verified. 12:20:23 Protege 6.0 x 30 Stent ([id number]) was deployed across Undefined1 . 12:20:55 PROTEGE 8 x 30 x 135 Stent ([id number]) was deployed across Undefined2 . 12:37:45 A [facility] Owusu 5Fr 125CM catheter ([id number]) was advanced over the wire and used for . 12:42:15 GLIDE WIRE ANGLE 260cm (YH4771) opened to sterile field. 12:46:30 A BandPage HN5 5F/100CM catheter (Y56616) was advanced over the wire and used for . 12:50:20 Heparin Bolus 2500 units I.V. was administered by Chiquis Bernabe RN; Per physician; Verbal order read back and verified. 12:55:17 COOK SHEATH 7FR RAABE 70CM (B85126) opened to sterile field. 12:56:55 Place stent Inflation Number: 1 A Visipro 9 x 27 x 135 Stent ([id number]) was prepped and advanced across the Undefined3 . The stent was deployed . 12:59:10 Fentanyl 25 mcg I.V. was administered by Chiquis Bernabe RN; for sedation ; Verbal order read back and verified. 13:03:10 Inflate balloon Inflation number: 2 A Evercross 6 x 2 x 135 Balloon ([id number]) was prepped and advanced across the Undefined3 , then inflated . 13:09:29 Fentanyl 25 mcg I.V. was administered by Chiquis Bernabe RN; for sedation ; Verbal order read back and verified. 13:20:41 Procedure ended.(Physican Out) 13:34:12 Fluoroscopy time 21.90 minutes. 13:34:17 Fluoroscopy dose: 822 mGy 13:34:17 Flurop Dose total: 822 13:34:28 Contrast amount:Isovue 300 75ml. 13:34:31 Procedure and supply charges have been captured, reviewed, submitted an d are correct. 13:46:06 Report given to CVICU. 13:46:34 Vital chart was stopped Intervention Summary Intervention Notes Time ActionType Lesion and Equipment Used Action# Pressure Duration Attributes 12:13:52 Inflate Undefined1 Evercross 8 x 2 x 1 0 00:00 balloon 135 Balloon ([id number]) 12:16:39 Inflate Undefined1 VIATRAC 6 x 2 x 2 0 00:00 balloon 135 balloon ([id number]) 12:20:23 Deploy self Undefined1 Protege 6.0 x 30 1 expanding Stent stent ([id number]) 12:20:55 Deploy self Undefined2 PROTEGE 8 x 30 x 1 expanding 135 Stent stent ([id number]) 12:56:55 Place stent Undefined3 Visipro 8 x 27 x 1 0 00:00 135 Stent ([id number]) 13:03:10 Inflate Undefined3 Evercross 6 x 2 x 2 0 00:00 balloon 135 Balloon ([id number]) Device Usage Item Name Manufacture Quantity Catalog Number [facility] Minimal Lot# / Charge Number Stock Stock Serial# Code Tegaderm 4 x 4 3M 1 1626W 265770 916632 54017 3 5 (1626W) Sterile Cardinal 1 [id number] 625267 61863 4 5 Angiographic Pack Health Bag Decanter Microtek 1 013074 34051 49069 3 5 () Medical Inc. ACIST Manifold Acist 1 65587 390995 531856 82758 6 5 (69360) Medical Systems Inc ACIST Hand Acist 1 66578 309046 081094 71273 0 5 Control (74632) Medical Systems Inc ACIST Syringe Acist 1 63526 794490 006734 90589 9 20 (44965) Medical Systems Inc SHEATH 5FR Terumo 1 TGY787 499695 919329 58855 2 5 Metz (OIO898) TUBING Contrast Merit 1 AOI028J 561543 334742 65361 3 5 Injection High Medical Pressure (TVR934B) ALFORD 260 wire Cook Medical 1 Y69377 702764 04599 20831 6 5 (T43290) CHOICE PT Extra [place] 1 [id number] 91664420190416 28335 8 5 Support J 300cm Scientific guide wire (3999140N9) Micropuncture VSI VSI VASCULAR 1 7266V 419049 15213 0 5 4FR kit SOLUTIONS Merit Impress Merit 1 953127SPO 815026 70656 5 5 Owusu 5FR. Medical 100CM catheter (082972AAE) INFLATOR Merit 1 ZV6423 089092 100036 64716 1 5 BasixCoho Data (VY4454) Cook RAABE 6FR. Cook Medical 1 D34278 253302 83514 9 5 90cm guide sheath ROADRUNNER .035 Cook Medical 1 H26562 354734 953368 56952 7 5 145 glide wire (A66957) Evercross 8 x 2 x Medtronic 1 [id number] 974804 840296 47544 8 5 135 Balloon ([id number]) SPIDER EMBOLIC Medtronic 1 PEX6-XC-251-320 495873 78515 8 5 PROTECTION DEVICE 5MM ([id number]) VIATRAC 6 x 2 x Martinez 1 0443645-90 059317 357912 52107 6 5 135 balloon Vascular ([id number]) Protege 6.0 x 30 Medtronic 1 DWKO-4-91-135 788282 794603 05596 5 5 [id number] Stent ([id number]) PROTEGE 8 x 30 x Medtronic 1 CFOI-1-20-135 898274 987221 50330 6 5 [id number] 135 Stent ([id number]) Merit Impress Merit 1 578864QIB 815484 164557 26046 4 5 Owusu 5Fr Medical 125CM catheter (608366LXD) GLIDE WIRE ANGLE Terumo 1 TR1054 428129 661654 47871 5 5 260cm (SR4205) Cook HN5 5F/100CM Cook Medical 1 H91836 559175 08322 8 2 catheter (J64992) COOK SHEATH 7FR Cook Medical 1 F06030 416175 44241 29806 6 1 RAABE 70CM (F58703) Visipro 8 x 27 x Medtronic 1 EHJ32-95-51-443 084216 536506 03261 5 5 [id number] 135 Stent (BGN10-38-43-239) Evercross 6 x 2 x Medtronic 1 [id number] 018043 990767 86488 8 5 135 Balloon ([id number]) Signature Audit [place] Time Signature Unsigned Intra-Procedure 06/16/2020 Theresa Marie 1:46:28 PM RT(R) [id number] [place] [address]
[~2020-06-08 09:33] MED LIST changes: +ELIQUIS2.5 MG PO
[2020-06-16] VITALS (16 sets, daily range): BP systolic 126–186; BP diastolic 55–80; Ht 175.3 cm; Wt 76.4 kg
[2020-06-16 06:08] LABS: BASOPHILS 0.3 % (0-2); EOSINOPHILS 2.8 % (0-7); HEMATOCRIT 42.7 % (42.0-54.0); HEMOGLOBIN 14.4 g/dL (13.5-17.5); IMMATURE GRANULOCYTES 0.1 % (0-5); LYMPHOCYTES 24.8 % (15-50); MCH 30.7 pg (26.0-34.0); MCHC 33.7 g/dL (31.0-37.0); MEAN PLATELET VOLUME 10.2 fL (7.4-10.4); MONOCYTES 12.8 % (2-11); NEUTROPHILS 59.2 % (40-80); PLATELET COUNT 199 10x3/uL (130-400); RBC 4.69 10x6/uL (4.20-6.10); RDW 13.2 % (11.5-14.5); WBC 7.4 10x3/uL (4.8-10.8)
[2020-06-16 06:29] LABS: APTT 27.3 SECONDS (22.8-39.4); INR 1.01 (0.85-1.17); PROTIME 13.3 SECONDS (11.6-15.0)
[2020-06-16 06:31] LABS: CALCIUM 8.9 mg/dL (8.5-10.1); CARBON DIOXIDE 30.9 mmol/L (21.0-32.0); CREATININE - SERUM 1.7 mg/dL (0.6-1.3); POTASSIUM - SERUM 3.9 mmol/L (3.5-5.1)
--- NOTE | 2020-06-16 07:25 | NUR ---
[address] COLVIN THROUGH RADIOLOGY DEPT. SPOKE WITH MARY KAY KHOURY RN ABOUT PT BEING A DIABETIC AND HIS IV FLUIDS ARE D5W WITH SODIUM BICARBONATE 8.4% AT 150CC. BS THIS AM WAS WNL. PT TOOK INSULIN LAST PM. MARY KAY STATES SHE WILL LET DR COLVIN KNOW AND WILL NOTIFY ME IF IV CHANGE NEEDED.
--- NOTE | 2020-06-16 16:58 | NUR ---
1430 PT HEART RATE IS 47 DR PAREDES CALLED AND COPY OF EKG FAXED TO HIM IN THE [facility].. 1600 [facility] IN TO SEE PATIENT.. AT BEDSIDE 1700 DR COLVIN IN TO SEE PATIENT.. CONTINUES AT BEDSIDE
--- NOTE | 2020-06-16 18:34 | NUR ---
1800 NOTED ON NEURO CHECK THAT THERE IS A SPOT OF BRIGHT RED BLOODON GROIN DRESSING. PEDAL PULSE IS WITH DOPPLER.. IGNACIO CHIN NOTIFIED.. 1809 ESLY HERE DRESSING REMOVED AND PRESSURE APPLIED.. DR LINN CALLED AND ORDER RECIEVED FOR FEMSTOP TO BE APPLIED [address] PEDAL PULSE WITH DOPPLER.. PATIENT WITHOUT C/O AT THIS TIME..
--- NOTE | 2020-06-16 23:15 | NUR ---
PT GIVEN CHG BATH, FEMSTOP OFF WITH NO BLEEDING NOTED. PT INCONTINENT OF BOWEL AND SPILT URINE OR MISSED URINAL WITH FEMSTOP ON. PT KEPT LEG STILL. LINENS CHANGED WITH BATH. WILL CONTINUE TO OBSERVE.
[2020-06-17] VITALS (11 sets, daily range): BP systolic 141–175; BP diastolic 56–79
[2020-06-17 04:34] LABS: BASOPHILS 0.2 % (0-2); EOSINOPHILS 0.2 % (0-7); HEMATOCRIT 42.6 % (42.0-54.0); HEMOGLOBIN 14.3 g/dL (13.5-17.5); IMMATURE GRANULOCYTES 0.2 % (0-5); LYMPHOCYTES 8.6 % (15-50); MCH 30.4 pg (26.0-34.0); MCHC 33.6 g/dL (31.0-37.0); MCV 90.6 fL (80.0-100.0); MEAN PLATELET VOLUME 10.6 fL (7.4-10.4); MONOCYTES 9.2 % (2-11); NEUTROPHILS 81.6 % (40-80); PLATELET COUNT 191 10x3/uL (130-400); RDW 12.8 % (11.5-14.5)
[2020-06-17 04:38] LABS: WBC 10.1 10x3/uL (4.8-10.8)
[2020-06-17 04:43] LABS: ANION GAP 10.5 mmol/L (8-16); CALCIUM 8.4 mg/dL (8.5-10.1); CARBON DIOXIDE 30.2 mmol/L (21.0-32.0); CREATININE - SERUM 1.6 mg/dL (0.6-1.3); POTASSIUM - SERUM 3.7 mmol/L (3.5-5.1)
[2020-06-17] MEDS ORDERED: PLAVIX75 MG PO (08:51)
--- NOTE | 2020-06-17 11:17 | NUR ---
Discharge instructions reviewed with patient and spouse. L-hand piv dc'd with catheter tip intact. Personal belongings sent with patient. Wheeled out to personal vehicle.
== END 2020-06-17 11:20 | disposition home or self-care (01) | DRG 68 ==
LOC: D.SDCHOLD 06-16 05:42 → D.CVICU 06-16 05:42 → D.SDCHOLD 06-16 08:00 → D.CVICU 06-16 14:01
PROVIDERS: ADMIT Radiology Diagnostic Radiology; ATTEND Radiology Diagnostic Radiology
DX: I65.23 Occlusion and stenosis of bilateral carotid arteries (principal); I77.1 Stricture of artery; I25.10 Atherosclerotic heart disease of native coronary artery without angina pectoris; Z86.73 Personal history of transient ischemic attack (TIA), and cerebral infarction without residual deficits; R00.1 Bradycardia, unspecified; S70.11XA Contusion of right thigh, initial encounter; X58.XXXA Exposure to other specified factors, initial encounter

== ENCOUNTER 2021-01-12 09:21 | Emergency (ER) | payer MEDICARE, OTHER ==
[~2021-01-12] VITALS: Ht 175.3 cm; Wt 78.2 kg
[2021-01-12 09:25] VITALS: Ht 175.3 cm; Wt 78.2 kg
[2021-01-12 10:43] LABS: BASOPHILS 0.7 % (0-2); CALC OSMOLALITY 288 mosm/kg (275-300); CHLORIDE - SERUM 103 mmol/L (98-107); CREATININE - SERUM 1.8 mg/dL (0.6-1.3); EOSINOPHILS 4.7 % (0-7); GLUCOSE 150 mg/dL (74-106); HEMATOCRIT 43.7 % (42.0-54.0); HEMOGLOBIN 14.6 g/dL (13.5-17.5); LYMPHOCYTE ABS# 1.54 10x3/uL (1.32-3.57); LYMPHOCYTES 25.8 % (15-50); MCH 30.6 pg (26.0-34.0); MCHC 33.4 g/dL (31.0-37.0); MCV 91.6 fL (80.0-100.0); MEAN PLATELET VOLUME 10.1 fL (7.4-10.4); MONOCYTES 11.6 % (2-11); NEUTROPHIL ABS# 3.41 10x3/uL (1.78-5.38); NEUTROPHILS 57.2 % (40-80); PLATELET COUNT 176 10x3/uL (130-400); POTASSIUM - SERUM 3.9 mmol/L (3.5-5.1); RBC 4.77 10x6/uL (4.20-6.10); RDW 13.2 % (11.5-14.5); SODIUM 140 mmol/L (136-145); UREA NITROGEN 32 mg/dL (7-18); eGFR NON AFRICAN AMERICAN 39 mL/min (90-120)
[2021-01-12 10:46] LABS: APTT 28.3 SECONDS (22.8-39.4); INR 1.09 (0.85-1.17)
[2021-01-12 11:01] LABS: ALBUMIN 3.5 g/dL (3.4-5.0); ALKALINE PHOSPHATASE 90 U/L (30-120); ALT (SGPT) 28 U/L (10-68); CKMB 4.9 U/L (0.0-3.6); CREATINE KINASE 201 UL (21-232); MAGNESIUM - SERUM 2.3 mg/dL (1.8-2.4); THYROID STIMULATING HORMONE 1.11 uIU/mL (0.36-3.74); TROPONIN-I < 0.017 ng/mL (0.000-0.060)
[2021-01-12 17:32] VITALS: BP 162/61
== END 2021-01-12 18:15 | disposition left against medical advice (07) ==
LOC: D.ER 09:21
PROVIDERS: Emergency Medicine
DX: I65.21 Occlusion and stenosis of right carotid artery (principal); I10 Essential (primary) hypertension; E11.9 Type 2 diabetes mellitus without complications; Z95.5 Presence of coronary angioplasty implant and graft; Z53.21 Procedure and treatment not carried out due to patient leaving prior to being seen by health care provider